=== PATIENT | female | born 1940 | race African-American/Black ===

== ENCOUNTER 2023-04-20 07:50 | Emergency (ER) | payer MEDICARE, SELFPAY ==
--- NOTE | ~2023-04-20 | XR_ITS ---
EXAMINATION: XR hip LT 2V w AP pelvis DATE: 04/20/2023 08:55 INDICATION: Left hip pain. TECHNIQUE: An anteroposterior view of the pelvis and 2 views of left hip were obtained. COMPARISON: None. FINDINGS: Bone alignment is normal. No fracture. There is severe osteoarthritis of the hips. Osteitis pubis is noted. There is severe lumbar spondylosis. IMPRESSION: 1. Severe osteoarthritis of the hips. Reviewed, dictated and finalized at location A. H DRIVER
--- NOTE | ~2023-04-20 | US_ITS ---
EXAMINATION: US venous doppler [facility] DATE: 04/20/2023 08:42 INDICATION: Left lower limb pain TECHNIQUE: [place] scale images without and with compression and Doppler images of the left lower extrem ity veins were obtained. COMPARISON: None FINDINGS: The left common femoral vein, profunda femoral vein, femoral vein, popliteal vein, peroneal trunk, posterior tibial veins, and greater saphenous vein are patent. IMPRESSION: 1. Patent left lower extremity veins. No evidence of deep venous thrombosis. Reviewed, dictated and finalized at location B. TESTER
[2023-04-20 07:59] VITALS: BP 179/92; PULSE 92; RESP 13; TEMP 36.4; O2SAT 100
--- NOTE | 2023-04-20 08:12 | ECG_ITS ---
Measurements Intervals [place] Rate: 90 P: 16 [place]: 167 QRS: -46 QRSD: 102 T: 29 QT: 394 QTc: 483 Interpretive Statements SINUS RHYTHM LEFT AXIS DEVIATION [QRS AXIS < -30] CONSIDER PREVIOUS INFERIOR INFARCTION ABNORMAL ECG NO PREVIOUS ECG AVAILABLE FOR COMPARISON Electronically Signed On 04-20-2023 18:17:55 MOBILE DEVICE ENGINEER by Arturo Ibrahim M.D.
--- NOTE | 2023-04-20 08:27 | ED.GENADULT ---
HPI - General Adult General Chief complaint: Unspecified Stated complaint: sciatica pain Time Seen by Provider: 04/20/23 07:54 History of Present Illness HPI narrative: 82-year-old female presenting to the emergency department for evaluation of left hip pain that has been going on for approximately 1 month but has worsened over the course of the last week. Patient denies any specific falls or injuries. Patient describes left hip pain that radiates down to her left leg that is worsened with ambulation. Patient denies any rashes. Patient reports she does have a prior history of sciatica and this feels very similar to it. Patient is a diabetic Related Data Allergies Allergy/AdvReac Type Severity Reaction Status Date / Time No Known Allergies Allergy Verified 04/20/23 08:02 Review of Systems Review of Systems: All systems reviewed & are unremarkable except as noted in HPI and below Exam Narrative: APPEARANCE: Well appearing, no pain, no distress, well-nourished. HEAD: normocephalic, atraumatic. EYES: PERRLA/EOMI, conjunctivae clear. NOSE: Normal no drainage NECK: Supple. No adenopathy, no masses. RESPIRATORY: Airway patent, respirations nonlabored. Clear to auscultation bilaterally, no rales, rhonchi, wheezing. CARDIOVASCULAR: Regular rate and rhythm without murmurs rubs or gallops. ABDOMINAL: Soft, nontender, nondistended, normal bowel sounds MUSCULOSKELETAL: Moves all extremities. Strength/ROM intact, No edema, No calf tenderness. NEURO: Alert. Cranial nerves II through XII intact. Good gait. Good coordination SKIN: No evidence of cellulitis or shingles at the affected site Course Course Emergency Course: Patient is being treated for sciatica with Medrol Dosepak and Flexeril. Vital Signs Vital signs: Vital Signs Temperature 97.5 F L 04/20/23 07:59 Pulse Rate 92 04/20/23 07:59 Respiratory Rate 13 04/20/23 07:59 Blood Pressure 179/92 H 04/20/23 07:59 Pulse Oximetry 100 04/20/23 07:59 Temperature 97.8 F 04/20/23 10:35 Pulse Rate 80 04/20/23 10:35 Respiratory Rate 13 04/20/23 10:35 Blood Pressure 163/87 H 04/20/23 10:35 Pulse Oximetry 99 04/20/23 10:35 Medical Decision Making MDM Narrative Medical decision making narrative: 82-year-old female presenting to the emergency department for evaluation of left hip pain that was reminiscent of her previous sciatic pain. Patient's x-ray showed no acute fracture dislocation an ultrasound was negative for DVT. Patient was provided [place] and Flexeril for pain med the emergency department but patient had not yet had significant improvement of her symptoms. Patient family updated on the results of the workup and suspected etiology of sciatica. Patient will be provided Medrol Dosepak, patient was advised to closely follow her low carb diet since she is diabetic. Patient will also be provided Flexeril for muscle spasm. Patient was encouraged to have close follow-up with her primary care physician. All questions and concerns were addressed patient was well-appearing at time of discharge. Differential Diagnosis Differential Diagnosis: Hip fracture, hip strain, shingles, cellulitis, muscular strain, sciatica Vital Signs Vital Signs: Vital Signs Temperature 97.5 F L 04/20/23 07:59 Pulse Rate 92 04/20/23 07:59 Respiratory Rate 13 04/20/23 07:59 Blood Pressure 179/92 H 04/20/23 07:59 Pulse Oximetry 100 04/20/23 07:59 Temperature 97.8 F 04/20/23 10:35 Pulse Rate 80 04/20/23 10:35 Respiratory Rate 13 04/20/23 10:35 Blood Pressure 163/87 H 04/20/23 10:35 Pulse Oximetry 99 04/20/23 10:35 Discharge Plan Discharge Clinical Impression: Sciatica Patient Disposition: Home, Self-Care Condition: Stable Instructions: Antibiotic Form, Sciatica (ED) Additional Instructions: Tylenol for pain control. Flexeril for muscle spasm. Medrol Dosepak as directed until completed. The Medrol Dosepak
[2023-04-20 08:57] VITALS: BP 164/84; PULSE 88; RESP 13; O2SAT 100
[2023-04-20] MEDS: CYCLOBENZAPRINE HCL 10 MG TABLET PO (09:37)
[2023-04-20] MEDS: HYDROcodone/acetaminophen (*CRX) 5-325 MG TABLET 1 TAB PO (09:37)
[2023-04-20 09:38] VITALS: BP 180/94; PULSE 90; RESP 13; O2SAT 100
[2023-04-20 10:35] VITALS: BP 163/87; PULSE 80; RESP 13; TEMP 36.6; O2SAT 99
== END 2023-04-20 10:38 | disposition home or self-care (01) ==
PROVIDERS: Emergency Provider Emergency Medicine; PCP Internal Medicine
DX: M54.32 Sciatica, left side (principal); M79.605 Pain in left leg; E11.9 Type 2 diabetes mellitus without complications; M16.0 Bilateral primary osteoarthritis of hip; R94.31 Abnormal electrocardiogram [ECG] [EKG]
CPT/HCPCS: 73502; 93005; 93971; 99284; A9270

== ENCOUNTER 2025-02-20 07:33 | Observation (INO) | payer MEDICARE, SELFPAY ==
--- OUTSIDE RECORDS SUMMARY | 2015-02-05 02:45 | XMS_ITS | Continuity of Care Document ---
[facility] Organization [facility] Address [id number] [place] [address] [address] [place] [address] Phone Care Team Providers Care Clinical Trial Educator Name Role Phone Peterson ZHONG, Cornelius Unavailable Unavaila ble Allergies, Adverse Reactions, Alerts Substance Reaction Status Criticality Iodinated Contrast Media Active No Information Medications Medication Instructions Dosage Effective Dates (start - stop) Status Comments Restasis 0.05 % eye drops in a dropperette instill 1 drop by Ophthalmic route 2 times every day into affected eye(s) 1 drop - Active Aleve 220 mg capsule prn - Active STANBACK ANALGESIC (unknown strength) Not Available - Active metformin 500 mg tablet take 1 tablet (500MG) by oral route 2 times every day with morning and evening meals 500 MG - Active clonazepam 0.5 mg tablet take 1 tablet (0.5MG) by oral route 3 times every day 0.5 MG - Active Procedures Procedure Date OFFICE/OUTPATIENT VISIT, EST VISUAL FIELD EXAMINATION(S) OFFICE/OUTPATIENT VISIT, EST GDX Optic Nerve OFFICE/OUTPATIENT VISIT, EST POSTOP FOLLOW-UP VISIT POSTOP FOLLOW-UP VISIT CATARACT SURG W/IOL, 1 STAGE POSTOP FOLLOW-UP VISIT POSTOP FOLLOW-UP VISIT POSTOP FOLLOW-UP VISIT CATARACT SURG W/IOL, 1 STAGE OFFICE/OUTPATIENT VISIT, EST OPHTHALMIC BIOMETRY OPHTHALMIC BIOMETRY VISUAL FIELD EXAMINATION(S) OFFICE/OUTPATIENT VISIT, [facility] Advance Directives Directive Yes / No Effective Date File Name No Information Encounters Encounter Description Practice Location Reason(s) For Visit Diagnoses Date Provider Providers Copied on Encounter OFFICE/OUTPA TIENT VISIT, EST [facility], [address] [place] [address], [id number], tel:[phone] [facility] Office glc check (chief complaint)d iabetic check (chief complaint) DM w/o complication type IIDry eyes, bilateralVitr eous floaters of both eyesOpen angle with borderline findings and low glaucoma risk in both eyesCataract extraction status of right eyeCataract extraction status of left eye 5 Peterson Shields. [address], [address], [place], [place], [id number], . tel:[phone] Referring Provider: Cornelius Winkler [address], [place], [address]. tel:[phone] OFFICE/OUTPA TIENT VISIT, EST [facility], [address] [place] [address], [id number], tel:[phone] [facility] Office Diabetic eye exam (chief complaint)G laucoma, suspect (chief complaint) Lens replaced by other meansOpen angle with borderline glaucoma findingsMacul ar drusenDiabete s Mellitus Type 2, Uncomplicated 5 Peterson Shields. [address], [address], [place], [place], [id number], [place]. tel:[phone] Referring Provider: Cornelius Winkler , [address], [place], [address]. tel:[phone] OFFICE/OUTPA TIENT VISIT, EST [facility], [address] [place] [address], [id number], tel:[phone] [facility] Office IOP check right eye and left eye 3 month(s) (chief complaint)n o complaints OU (chief complaint) Open angle with borderline glaucoma findingsLens replaced by other means Oct-0 4 Stephanie Clark. [address], [address], [place], [place], [id number], [place]. tel:[phone] Referring Provider: Eduardo Colin, [address] [facility] [address], [place], [address]. tel:[phone] [facility], [address] [place], [place] [address] [address], [place], [place], [id number], [place] tel:[phone] [facility] No Information 4 Stephanie Clark. [address] [facility], [address], [place], [place], [id number], [place]. tel:[phone] [facility], [address] [place], [place] [address], [place], [place], [id number], [place] tel:[phone] [facility] no complaints OU (chief complaint) No Information 4 Stephanie Clark. [address], [address], [place], [place], [address], [place]. tel:[phone] [facility], [address] [place], [place] [address]TE [facility], [place], [place], [id number], [place] tel:[phone] [facility] no complaints OU (chief complaint) No Information 4 Peterson Shields. [address], [place], [place], [id number], [place]. tel:[phone] Referring Provider: Cornelius Winkler , [address], [place], [address]. tel:[phone] [facility], [address] [place], [place] [address] [address], [place], [place], [id number], [place] tel:[phone] [facility] No Information 4 Peterson Shields. [address], [address], [place], [place], [address], [place]. tel:[phone] Referring Provider: Cornelius Winkler , [address], [place], [address]. tel:[phone] [facility], [address] [place] [address], [id number], tel:[phone] [facility] Pt not sleeping on right side OD (chief complaint)v ision is improved OD (chief complaint) No Information 4 Peterson Cornelius. [address], [place], [place], [id number], [place]. tel:[phone] Referring Provider: Cornelius Winkler [address], [place], [address]. tel:[phone] [facility], [address] [place] [address], [id number], tel:[phone] [facility] no complaints OD (chief complaint) No Information 4 Joaonasheidy Cornelius. [address], [place], [place], [address], [place]. tel:[phone] Referring Provider: Cornelius Winkler , [address], [place], [address]. tel:[phone] [facility], [address] [place] [address], [id number], [place] tel:[phone] [facility] YOLI BUTTS vision is improved OD (chief complaint) No Information 4 Krishnasamy Cornelius. [address], [address], [id number], [place]. tel:[phone] Referring Provider: Cornelius Winkler , [address], [place], [address]. tel:[phone] [facility], [address] [place] [address], [id number], tel:[phone] [facility] No Information 4 Peterson Cornelius. [address], [address], [place], [id number], . tel:[phone] Referring Provider: Cornelius Winkler , [address], [address]. tel:[phone] OFFICE/OUTPA TIENT VISIT, EST [facility], [address] [place] [address], [id number], tel:[phone] [facility] Office Senile nuclear sclerosisOpen angle with borderline glaucoma findingsDiabe deni Mellitus Type 2, Uncomplicated 4 Ministerioheidy Shields. [address], [address], [id number], . tel:[phone] Referring Provider: Cornelius Winkler , [address], [address]. tel:[phone] OFFICE/OUTPA TIENT VISIT, [facility], [address] [place] [address], [id number], tel:[phone] [facility] Office Pain in or around eyeConjunctiv al hemorrhageSen ile nuclear sclerosisOpen angle with borderline glaucoma findings 4 Peterson Shields. [address], [address], [address], [place]. tel:[phone] Referring Provider: Cornelius Winkler [address], [place], [address]. tel:[phone] Family History Family Member Type Diagnosis Age At Onset Problem (finding) Family history of Diabe deni mellitus Payers Payer name Insurance type Covered republican ID Authoriza tion(s) Medicare Complete Advantage [facility] [id number] Social History Type Description Quantity Date Captured Comments Alcohol Use Details Caffeine Use Details Unknown Tobacco Use Status No Information Smoking Status Former smoker Sex Female Chief Complaint And Reason For Visit From encounter dated '02/05/2015 08:45'. glc check (chief complaint). Description: The 74 year old female presents for glc check in the right eye and left eye. No drops currently. Vision seems stable. Patient did not bring glasses today. Only wears PRN. Last eye exam 08/04/2014. Last [facility] OCT 08/04/14. VF done today diabetic check (chief complaint). Description: The patient is present for diabetic check in the right eye and left eye. NIDDM - pt unsure last BS or HBA1c. Followed by Dr. Langston Reason For Referral Reason For Referral No Information History Of Present Illness Encounter Date Complaint History Of Prese nt Illness glc check The 74 year old female presents for glc check in the right eye and left eye. No drops currently. Vision seems stable. Patient did not bring glasses today. Only wears PRN. Last eye exam 08/04/2014. Last [facility] OCT 08/04/14. VF done today diabetic check The patient is p resent for diabetic check in the right eye and left eye. NIDDM - pt unsure last BS or HBA1c. Followed by Dr. Langston Diabetic eye exam The 74 year ol d female presents for evaluation of Diabetic eye exam in the right eye and left eye. It started about 1 year(s) ago. The symptom is constant. The condition is stable. Pt unsure of last A1C. Glaucoma, suspect The patient is present for evaluation of Glaucoma, suspect in the right eye and left eye. It started about 6 month(s) ago. The symptom is constant. The condition is stable. no complaints no complaints OU no complaints no complaints OU no complaints no complaints OU Pt not sleeping on right side Pt not sleeping on right side OD BAT 20/25 20/CF vision is improved vision is imp roved OD no complaints no complaints OD vision is improved vision is imp roved OD Functional Status Date Functional Assessmen t No Information Instructions Date Instruction Additional Infor keila Follow up - Return i n 6 months with for Complete Exam. Impression/Plan - Wi ll continue to observe condition and or symptoms. Call if VA worsens. Related to Cataract extraction status of left eye Impression/Plan - Wi ll continue to observe condition and or symptoms. Related to Cataract extraction status of right eye Impression/Plan - Nelson rderline glaucoma, intraocular pressure stable without medication. Continue without medication and observe. VF today was unreliable-OU. Related to Open angle with borderline findings and low glaucoma risk in both eyes Impression/Plan - Di abetes type II: no background retinopathy, no signs of neovascularization noted. Discussed ocular and systemic benefits of blood sugar control. Related to DM w/o complication type II Impression/Plan - Restasis BID-O U. Related to Dry eyes, bilateral Impression/Plan - Al l signs and risks of retinal detachment and tears were discussed in detail. Patient instructed to call the office immediately if any symptoms noted. Related to Vitreous floaters of both eyes Follow up - Return i n 6 months with for Complete Exam. Impression/Plan - Di abetes type II: no background retinopathy, no signs of neovascularization noted. Discussed ocular and systemic benefits of blood sugar control. Related to Diabetes Mellitus Type 2, Uncomplicated Impression/Plan - Di scussed diagnosis in detail with patient. No treatment is required at this time. Will continue to observe condition and or symptoms. Call if VA worsens. Related to Macular drusen Impression/Plan - St able. No treatment is required at this time. Will continue to monitor IOP. IOPs WNL today OU, will observe. Related to Open angle with borderline glaucoma findings Impression/Plan - St able. No treatment is required at this time. Related to Lens replaced by other means Lens replaced by oth er means OU - Stable. No treatment is required at this time. Will continue to observe condition and or symptoms. 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 No treatment is required at this time. Will continue to monitor IOP. Related to Open angle with borderline glaucoma findings - Return in 6 months with Cornelius Winkler MD for Diabetic Eval. Related to Open angle with borderline glaucoma findings - Standard distance lens. Continue using OTC readers. If RTO in 3 months for Follow UP Related to Cataract 1 week, 2nd eye - Refract patient next visit. - Related to Cataract 1 day, 2nd eye - Discussed importan ce of keeping blood sugar under controlReturn in 1 week. Related to Cataract 1 day, 2nd eye - Schedule Cataract Surgery for the 2nd eye -OS due to halos and glare while night driving and reading Related to Cataract 1 month - Return in 1 Month- Consider scheduling OS next visit Related to Cataract 1week, 1st eye, STD, DIST - Refract patient next visit. - Related to Cataract 1 day, 1st eye - Return in 1 week. Related to C ataract 1 day, 1st eye Diabetes Type II - D iabetes type II: no background retinopathy, no signs of neovascularization noted. Discussed ocular and systemic benefits of blood sugar control. Related to Diabetes Type II Senile nuclear scler osis OU-small pupils - Discussed all risks, benefits, procedures and recovery. Patient understands changing glasses will not improve vision. Patient desires to have surgery, recommend phacoemulsification with intraocular lens.OD first and then OS. Standard, distance lens. 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 No treatment is required at this time. Will continue to monitor. 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 Advised patient that surgical treatment is needed to improve vision. RTO in 1 month for Cat eval-will discuss surgery further at that time. Related to Senile nuclear sclerosis Pain in or around ey e OD - Discussed diagnosis in detail with patient. No treatment is required at this time. Cont using antibiotic gtts given by ER. Patient instructed to call if condition gets worse. 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 No treatment is required at this time. Will continue to observe condition and or symptoms. VF and IOP check in 1 month Related to Open angle with borderline glaucoma findings Conjunctival hemorrh age OD - Discussed diagnosis in detail with patient. No treatment is required. Related to Conjunctival hemorrhage Assessments Type Assessment Date assessment DM w/o complication type II impression Dry eyes, bilateral: H04.123. De assessment Dry eyes, bilateral impression Vitreous floaters of both eyes: H43.393. assessment Vitreous floaters of both eyes D impression Open angle with bord kymberly findings and low glaucoma risk in both eyes: H40.013. assessment Open angle with bord kymberly findings and low glaucoma risk in both eyes impression Cataract extraction status of ri ght eye: Z98.41. assessment Cataract extraction status of ri ght eye impression Cataract extraction status of le ft eye: Z98.42. assessment Cataract extraction status of le ft eye impression DM w/o complication type II: E11 .9. Patient Care Teams Name Effective Dates (start - stop) Status Members No Information
[2025-02-20] VITALS (10 sets, daily range): BP systolic 132–194; BP diastolic 72–101; PULSE 87–97; RESP 16–20; TEMP 36.4–36.8; O2SAT 98–100; BMI 42.1; BMI 41.8
--- NOTE | ~2025-02-20 | XR_ITS ---
EXAMINATION: XR chest 2V DATE: 02/20/2025 09:07 INDICATION: Cough. Racing heart. TECHNIQUE: frontal and lateral views of the chest were obtained. COMPARISON: None FINDINGS: Mild streaky atelectasis at the left lung base. Lungs otherwise clear. No pulmonary edema, pleural effusion or pneumothorax. Cardiomegaly. Tortuous thoracic aorta. 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 IMPRESSION: 1. Cardiomegaly. 2. Mild streaky left basilar atelectasis. No other acute cardiopulmonary disease. Reviewed, dictated and finalized at location A. GER STUDY IMPRESSION: 1. Cardiomegaly. 2. Mild streaky left basilar atelectasis. No other acute cardiopulmonary diseas e.
--- NOTE | 2025-02-20 07:37 | ECG_ITS ---
Test Date: 2025-02-20 07:41:36 Measurements Intervals [place] Rate: 93 P: 20 [place]: 147 QRS: -47 QRSD: 100 T: 57 QT: 368 QTc: 459 Interpretive Statements SINUS RHYTHM LEFT AXIS DEVIATION INCOMPLETE RIGHT BUNDLE BRANCH BLOCK POSSIBLE ANTERIOR MYOCARDIAL INFARCTION ABNORMAL ECG No previous ECG available for comparison Electronically Signed On 02-20-2025 08:46:16 HYDRAULIC MECHANIC by Blue Mccann D.O.
[2025-02-20 07:53] LABS: Hematocrit 46.4 % (37.0-47.0); Hemoglobin 15.1 g/dL (12.0-15.0); Immature Granulocyte Percent A 0.4 % (0-0.5); Lymphocytes Absolute Auto 3.36 K/mm3 (0.9-3.2); Mean Corpuscular HGB Conc 32.5 g/dl (32-36); Mean Corpuscular Hemoglobin 32.6 pg (26-34); Mean Corpuscular Volume 100.2 fl (80-100); Nucleated Red Blood Cells Absolute Auto 0.000 K/mm3 (0.0-0.012); Nucleated Red Blood Cells Perc 0.0 % (0.0-0.2); Platelet Count Result 195 k/mm3 (150-375); Red Blood Count 4.63 M/mm3 (4.2-5.4); White Blood Count 9.1 K/mm3 (4.5-10.0)
--- NOTE | 2025-02-20 08:08 | ED_ITS ---
HPI - General Adult General Chief complaint: Arrhythmia/Palpitations Stated complaint: heart racing Time Seen by Provider: 02/20/25 07:35 History of Present Illness HPI narrative: 84-year-old female presenting to the emergency department for evaluation for intermittent heart racing. Patient states this bothers her in the middle the night. Patient states that she is falling asleep she has no racing heart rate but wakes up with a racing heart rate. Patient has never had a sleep study and patient has no prior diagnosis of sleep apnea. Patient does take medications for blood pressure, diabetes and patient states she has not taken her blood pressure medication the last few days. Patient denies any sensation of racing heart rate now. Patient denies any associated chest pain, shortness breath, nausea vomiting diarrhea, abdominal pain. Patient denies any recent illnesses. Patient is resting comfortably at time of evaluation. Patient's heart rate is not tachycardic. Patient is hypertensive. Related Data Home Medications ?Medication ?Instructions ?Recorded ?Confirmed ?Last Taken ?Type losartan 50 mg tablet 50 mg PO DAILY 08/04/2401/2402/20/25 History meloxicam 15 mg tablet 15 mg PO DAILY 08/04/2401/24 Unknown History rosuvastatin 40 mg tablet 40 mg PO DAILY 08/04/2401/24 Unknown History Allergies Allergy/AdvReac Type Severity Reaction Status Date / Time blue dye Allergy Mild other Verified 02/20/25 16:23 Corticosteroids Allergy Mild angioedema Verified 02/20/25 16:23 (Glucocorticoids) enalapril Allergy Mild Cough Verified 02/20/25 16:23 semaglutide (From Ozempic) AdvReac Mild Nausea Verified 02/20/25 16:23 Review of Systems 2 Review of Systems: All systems reviewed & are unremarkable except as noted in HPI and below PMFSH Past Medical History Medical History Essential hypertension Obesity Hyperlipidemia Vitamin D deficiency Diabetes mellitus Surgical History Surgical History H/O tubal ligation Hx of eye surgery History of removal of cyst Family History Family History Father Diabetes mellitus Other Diabetes mellitus Social History Social History Smoking status: Never smoker Second hand tobacco smoke exposure: No Alcohol intake: never Substance use: never Substance use type: does not use Lack of Transportation: No Lack of Food: Never True Current Housing: I Have Housing Concerned About Future Housing: No Difficulty Paying Gas/Electric Bills: No Difficulty Paying for Meds: No Currently Unemployed: No Education: High School Diploma/GED Difficulty w/ Childcare or Family Care: No Occupation/Education: retired Gender identity (if verbalized by the patient): Female Sexual Orientation (if Verbalized by the Patient): Straight or Heterosexual Spiritual care concerns: No Agree to blood products: Yes Exam 2 Narrative: APPEARANCE: Well appearing, no pain, no distress, well-nourished. HEAD: normocephalic, atraumatic. EYES: PERRLA/EOMI, conjunctivae clear. NOSE: Normal no drainage EARS:TMS clear with good light reflex. THROAT: Pharynx clear, no exudate. NECK: Supple. No adenopathy, no masses. RESPIRATORY: Airway patent, respirations nonlabored. Clear to auscultation bilaterally, no rales, rhonchi, wheezing. CARDIOVASCULAR: Regular rate and rhythm without murmurs rubs or gallops. ABDOMINAL: Soft, nontender, nondistended, normal bowel sounds MUSCULOSKELETAL: Moves all extremities. Strength/ROM intact, No edema, No calf tenderness. NEURO: Alert. Cranial nerves II through XII intact. Good gait. Good coordination SKIN: Warm, dry. Normal Color Course Vital Signs Vital signs: Vital Signs Temperature 97.5 F L 02/20/25 07:37 Pulse Rate 96 02/20/25 07:37 Respiratory Rate 18 02/20/25 07:37 Blood Pressure 194/101 H 02/20/25 07:37 Pulse Oximetry 100 02/20/25 07:37 Oxygen Delivery Room Air 02/20/25 07:37 Temperature 98.2 F 02/20/25 13:57 Pulse Rate 87 02/20/25 13:57 Respiratory Rate 20 02/20/25 13:57 Blood Pressure 132/76 02/20/25 13:57 Pulse Oximetry 99 02/20/25 13:57 Oxygen Delivery Room Air 02/20/25 07:46 MDM MDM Narrative Medical decision making narrative: 84-year-old female presents emergency department for evaluation for elevated blood pressure. Patient arrived with a blood pressure of 194/101. Patient had not taken her blood pressure medications for the last few days. Patient was treated with her home medications and patient's blood pressure did improve to 128/79. At time of re-evaluation patient denies any headache chest pain or other complaints. She does feel improved. Patient has no prior history of NM. Patient believes she had a previous stress test but is unsure when. Patient does not follow-up with Cardiology. Patient is afebrile with no leukocytosis and hemoglobin of 15.1. Patient has a INR of 1.1. Patient's creatinine is 0.84. Normal TSH. Patient's chest x-ray shows cardiomegaly with no acute cardiopulmonary abnormality. Serial EKGs showed normal sinus rhythm with incomplete right bundle-branch. Case will be discussed with Cardiology and the hospitalist. Recommend admission for further cardiac evaluation. Cardiology is consulted and they were comfortable the plan for holding on heparin at this time. Patient will be admitted to the IMU. Hospitalist was consulted as well. Patient is unsure of her code status at this time. Differential Diagnosis Differential Diagnosis: Sleep apnea, tachycardia, SVT, AFib, a flutter ACS, hypertensive urgency Lab Data [facility] Lab Attestation statement: I personally reviewed the patient's lab results. 02/20/25 07:47 02/20/25 08:06 Labs: Lab Results 02/20/25 02/20/25 02/20/25 Range/Units 07:47 08:06 11:06 WBC 9.1 (4.5-10.0) K/mm3 RBC 4.63 (4.2-5.4) M/mm3 Hgb 15.1 H (12.0-15.0) g/dL Hct 46.4 (37.0-47.0) % MCV 100.2 H (80-100) fl MCH 32.6 (26-34) pg MCHC 32.5 (32-36) g/dl RDW 13.0 (11.5-14.5) % Plt Count 195 (150-375) k/mm3 MPV 10.4 (7.4-10.4) fl Immature Gran % (Auto) 0.4 (0-0.5) % Neut % (Auto) 53.7 (45.5-73.1) % Lymph % (Auto) 37.0 (18.3-44.2) % Tucker % (Auto) 6.9 (2.6-8.5) % Eos % (Auto) 1.2 (0-4.4) % Baso % (Auto) 0.8 (0.2-1.2) % Lymph # (Auto) 3.36 H (0.9-3.2) K/mm3 Tucker # (Auto) 0.6 (0.1-0.6) K/mm3 Eos # (Auto) 0.1 (0-0.3) K/mm3 Baso # (Auto) 0.1 (0.0-0.1) K/mm3 Abs Immat Gran (auto) 0.04 H (0.00-0.031) K/mm3 Absolute Neuts (auto) 4.9 (1.3-6.7) K/mm3 Absolute Nucleated RBC 0.000 (0.0-0.012) K/mm3 Nucleated RBC % 0.0 (0.0-0.2) % PT 14.1 (11.1-14.7) Seconds INR 1.1 APTT 28.3 (22.3-36.8) Seconds Sodium 143 (137-145) mmol/L Potassium 3.9 (3.4-5.0) mmol/L Chloride 111 H (98-107) mmol/L Carbon Dioxide 24 (22-30) mmol/L Anion Gap 8 (4-12) mmol/L BUN 14 (7-17) mg/dL Creatinine 0.84 (0.7-1.0) mg/dL Estim Creat Clear Calc 48 ml/min Estimated GFR > 60 (59 - ) Glucose 137 H (65-110) mg/dL POC Capillary Glucose (65-105) mg/dl Calcium 9.1 (8.4-10.2) mg/dL Magnesium 2.0 (1.6-2.3) mg/dL Total Bilirubin 0.8 (0.2-1.3) mg/dL AST 35 (14-36) U/L ALT 18 (6-35) U/L Alkaline Phosphatase 118 (38-126) U/L Troponin I 0.037 H* 0.043 H* (0.000-0.034) ng/mL Total Protein 8.4 H (6.3-8.2) g/dL Albumin 4.1 (3.5-5.1) g/dL Lipase 73 (23-300) U/L TSH (Reflex) 3.320 (0.465-4.68) uIU/mL 02/20/ Range/Units 11:21 WBC (4.5-10.0) K/mm3 RBC (4.2-5.4) M/mm3 Hgb (12.0-15.0) g/dL Hct (37.0-47.0) % MCV (80-100) fl MCH (26-34) pg MCHC (32-36) g/dl RDW (11.5-14.5) % Plt Count (150-375) k/mm3 MPV (7.4-10.4) fl Immature Gran % (Auto) (0-0.5) % Neut % (Auto) (45.5-73.1) % Lymph % (Auto) (18.3-44.2) % Tucker % (Auto) (2.6-8.5) % Eos % (Auto) (0-4.4) % Baso % (Auto) (0.2-1.2) % Lymph # (Auto) (0.9-3.2) K/mm3 Tucker # (Auto) (0.1-0.6) K/mm3 Eos # (Auto) (0-0.3) K/mm3 Baso # (Auto) (0.0-0.1) K/mm3 Abs Immat Gran (auto) (0.00-0.031) K/mm3 Absolute Neuts (auto) (1.3-6.7) K/mm3 Absolute Nucleated RBC (0.0-0.012) K/mm3 Nucleated RBC % (0.0-0.2) % PT (11.1-14.7) Seconds INR APTT (22.3-36.8) Seconds Sodium (137-145) mmol/L Potassium (3.4-5.0) mmol/L Chloride (98-107) mmol/L Carbon Dioxide (22-30) mmol/L Anion Gap (4-12) mmol/L BUN (7-17) mg/dL Creatinine (0.7-1.0) mg/dL Estim Creat Clear Calc ml/min Estimated GFR (59 - ) Glucose (65-110) mg/dL POC Capillary Glucose 131 H (65-105) mg/dl Calcium (8.4-10.2) mg/dL Magnesium (1.6-2.3) mg/dL Total Bilirubin (0.2-1.3) mg/dL AST (14-36) U/L ALT (6-35) U/L Alkaline Phosphatase (38-126) U/L Troponin I (0.000-0.034) ng/mL Total Protein (6.3-8.2) g/dL Albumin (3.5-5.1) g/dL Lipase (23-300) U/L TSH (Reflex) (0.465-4.68) uIU/mL Imaging Data Radiologist's impression: ITS Impressions Chest X-Ray 02/20/25 09:12 IMPRESSION: 1. Cardiomegaly. 2. Mild streaky left basilar atelectasis. No other acute cardiopulmonary disease. Discharge Plan Discharge Clinical Impression: Heart palpitations, Non-ST elevation NM (NSTEMI) Patient Disposition: Still a Patient Condition: Serious
[2025-02-20] MEDS: LOSARTAN POTASSIUM 50 MG TABLET PO (08:12)
[2025-02-20 08:25] LABS: Alanine Aminotransferase 18 U/L (6-35); Albumin Level 4.1 g/dL (3.5-5.1); Alkaline Phosphatase 118 U/L (38-126); Anion Gap 8 mmol/L (4-12); Aspartate Amino Transferase 35 U/L (14-36); Bilirubin,Total 0.8 mg/dL (0.2-1.3); Blood Urea Nitrogen 14 mg/dL (7-17); Calcium 9.1 mg/dL (8.4-10.2); Carbon Dioxide 24 mmol/L (22-30); Chloride 111 mmol/L (98-107); Estimated CRCL calculation 48 ml/min; Estimated Glomerular Filt Rate > 60; Glucose 137 mg/dL (65-110); INR 1.1; Lipase 73 U/L (23-300); Magnesium 2.0 mg/dL (1.6-2.3); Potassium 3.9 mmol/L (3.4-5.0); Prothrombin Time 14.1 Seconds (11.1-14.7); Sodium 143 mmol/L (137-145); Total Protein 8.4 g/dL (6.3-8.2)
[2025-02-20 08:26] LABS: Partial Thromboplastin Time 28.3 Seconds (22.3-36.8)
[2025-02-20 08:36] LABS: Troponin I 0.037 ng/mL (0.000-0.034)
--- OUTSIDE RECORDS SUMMARY | 2025-02-20 08:49 | XMS_ITS | Clinical Summary ---
Author Organization [facility] Address [address] [place] [address] Care Team Providers Care Stereo Equipment Installer Name Role Phone Unavailable Primary Care Provider Unavailabl e Source Comments [facility],non-owned Affiliates and Associated Physician Practices is amultiple site organization consisting of ambulatory clinics and hospital sitesin [place], [place], [place] and [place]. This disclosure is being madepursuant to the Care Everywhere program and may not contain all information available regarding this patient. Last updated 17.[facility] Allergies Active Allergy Reactions Criticality Noted Date Comments Iodine 04/16/2009 Ivp dye Medications * Be aware that medications may not be up to date on this document. Alwaysverify current medications with the patient. Naproxen Sodium (ALEVE PO) Active glipiZIDE CR 24hr (GLUCOTROL XL) 2.5 MG tablet Take 1 Tab by mouth daily before breakfast 90 Tab 1 7 Active atorvastatin (LIPITOR) 40 MG tablet Take 1 Tab by mouth at bedtime 30 Tab 5 7 Active aspirin (ASPIRIN) 81 MG tablet Take 1 Tab by mouth once daily 30 Tab 5 7 Active One Touch Delica Lancets TEST DIRECTED THREE TIMES DAILY 300 Each 5 7 Active ONETOUCH VERIO test strip TEST DIRECTED 3 TIMES DAILY 250 Strip 1 7 Active enalapril (VASOTEC) 5 MG tablet TAKE 1 TABLET BY MOUTH EVERY DAY 30 Tab 5 7 Active metFORMIN (GLUCOPHAGE) 1000 MG tablet TAKE 1 TABLET BY MOUTH TWICE DAILY WITH THE MORNING AND EVENING MEAL FOR DIABETES 60 Tab 5 7 Active Active Problems Problem Noted Date Diagnosed Date Ulnar nerve compression 06/25/2016 Full code status 06/17/2016 Carpal tunnel syndrome 03/14/2016 BMI 40.0-44.9, adult 03/13/2016 M obesity 03/13/2016 Hip pain 04/16/2009 HTN (hypertension) HLD (hyperlipidemia) Overview (06/17/2016): 05/2016: 45.2 % 10 yr ascvd risk, atorvastatin 40 mg started Diabetes mellitus Arthritis Anxiety Family History Medical History Relation Name Comments Breast Cancer at or under ag e 50 Daughter Diabetes Father Hypertension Father [place] Father Dementia Maternal Grandmother Stroke Mother took her husban d's meds acidentally Diabetes Paternal Grandmother Other Son sudden Relation Name Status Comments Daughter (Age 44) Father Maternal Grandmother Mother Paternal Grandmother Son (Age 44) Social History Tobacco Use Types Packs/Day Years Used Date Smoking Tobacco: Former Cigarettes 2 35 Tobacco Cessation:Counseling Given: Yes Alcohol Use Standard Drinks/Week Comments Yes 0 (1 standard drink = 0.6 oz pur e alcohol) rare Comments Unknown Sex and Gender Information Value Date Recorded Sex Assigned at Not on file 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 Gender Identity Not on file Sexual Orientation Not on file Occupation Industry Job Start Date Job End Date retired Not on file Not on file Not on file Last Filed Vital Signs Vital Sign Reading Time Taken Comments Blood Pressure 122/80 06/17/2016 11:36 AM CDT Pulse 95 06/17/2016 10:56 AM CDT Temperature 36.5 C (97.7 F) 06/17/2016 10:56 AM CDT Respiratory Rate 20 01/04/2016 9:14 AM [employer]ING MAKEUP ARTIST Oxygen Saturation 98% 06/17/2016 10: 56 AM CDT Inhaled Oxygen Concentration - - Weight 109.8 kg (242 lb 0.4 oz) 017 10:56 AM CDT Height 167.6 cm (5' 6) 06/17/2016 10:5 6 AM CDT Body Mass Index 39.06 06/17/2016 10:56 AM CDT Plan of Treatment Health Maintenance Due Date Last Done Comments BONE DENSITY TESTING 1940 PNEUMOCOCCAL VACCINE 50+ (1 of 1 - PCV) 1988 ZOSTER VACCINE (1 of 2) 1988 Respiratory Syncytial Virus (RSV) Vaccine Pt: or over 60 yrs (1 - 1-dose 75+ series) 2013 DIABETES-HGB A1C 12/17/2016 06/17/2016, 03/14/2016 DIABETES-FOOT EXAM WITH MONOFILAMENT 03/14/2017 03/14/2016 DEPRESSION SCREENING 02/24/2024 COVID-19 VACCINE (1 - 2024-2 6 season) 2024 INFLUENZA VACCINE (#1) 2024 DTAP/TDAP/TD VACCINES Discontinued HEPATITIS B VACCINE Aged Out No longe r eligible based on patient's age to complete this topic HIB VACCINE Aged Out No longer eligi ble based on patient's age to complete this topic HPV VACCINE Aged Out No longer eligi ble based on patient's age to complete this topic MENINGOCOCCAL (Group B) VACCINE SHARED DECISION-MAKING Aged Out No longer eligible based on patient's age to complete this topic MENINGOCOCCAL GROUPS A/C/Y/W VACCINE Aged Out No longer eligible based on patient's age to complete this topic Procedures Procedure Name Priority Date/Time Associated Diagnosis Comments HEMOGLOBIN A1C - POINT OF CARE (AMB) Routine 06/17/2016 Type 2 diabetes mellitus without complication, without long-term current use of insulin from Last 3 Months or Most Recently Relevant to Health Maintenance Results * (ABNORMAL) HEMOGLOBIN A1C - POINT OF CARE (HgbA1C) (06/17/2016) Hemoglobin A1c POCT 8.2 % QC Verified Yes Blood BLOOD SPECIMEN / Unknown 06/17/2016 us Chayito Gill MD LAB - POINT OF CARE ORDERABL ES Final Result from Last 3 Months or Most Recently Relevant to Health Maintenance Insurance [facility] MANAGED MEDICARE ADV
[2025-02-20 09:09] LABS: Thyroid Stimulating Hormone Reflex 3.320 uIU/mL (0.465-4.68)
--- NOTE | 2025-02-20 09:34 | PC.NURSE ---
Pt co L leg pain, EDP aware
[2025-02-20] MEDS: HYDROcodone/acetaminophen (*CRX) 7.5-325 MG TABLET 1 TAB PO (10:59)
--- NOTE | 2025-02-20 11:00 | ECG_ITS ---
Test Date: 2025-02-20 11:11:53 Measurements Intervals [place] Rate: 89 P: 72 KS: 149 QRS: -48 QRSD: 96 T: 51 QT: 370 QTc: 452 Interpretive Statements SINUS RHYTHM LEFT AXIS DEVIATION INCOMPLETE RIGHT BUNDLE BRANCH BLOCK POSSIBLE ANTERIOR MYOCARDIAL INFARCTION , OF INDETERMINATE AGE INFERIOR INFARCT, AGE INDETERMINATE BORDERLINE ST-T WAVE ABNORMALITY- HIGH LATERAL LEADS BASELINE ARTIFACT- I, II, III, AVL, V2 ABNORMAL ECG Compared to ECG 02/20/2025 07:41:36 NO SIGNIFICANT CHANGE Electronically Signed On 02-20-2025 22:15:12 FABRICATION MANAGER by Blue Mccann D.O.
[2025-02-20 11:36] LABS: Troponin I 0.043 ng/mL (0.000-0.034)
--- NOTE | 2025-02-20 14:01 | ECG_ITS ---
Test Date: 2025-02-20 14:09:25 Measurements Intervals [place] Rate: P: 0 NE: 0 QRS: 0 QRSD: 0 T: 0 QT: 0 QTc: 0 Interpretive Statements SINUS RHYTHM WITH ATRIAL PREMATURE COMPLEXES CONSIDER RIGHT VENTRICULAR CONDUCTION DELAY CONSIDER ANTERIOR INFARCT, AGE INDETERMINATE CONSIDER INFERIOR INFARCT, AGE INDETERMINATE ABNORMAL ECG Compared to ECG 02/20/2025 11:11:53 NO SIGNIFICANT CHANGE Electronically Signed On 02-20-2025 22:25:22 COMMERCIAL ENERGY RATER by Blue Mccann D.O.
--- NOTE | 2025-02-20 14:43 | PM.IMHP2 ---
H&P: HPI History of Present Illness Date/Time: 02/20/25 14:43 Chief Complaint: Palpitations Narrative: 84 y/o F with PMH of hypertension, hyperlipidemia, and diabetes presents here with palpitations. The patient presents here from home on 02/20 for further evaluation of palpitations. She reports she has had intermittent palpitations that is mainly occurred at night for the past few weeks. She has had 1 episode of palpitations during the day yesterday. She reports she wakes up with her her wheezing. Denies any accompanying chest pain, shortness a breath, nausea, vomiting, diarrhea, fever, chills, or dizziness. Her daughter reports that she noted her mom has had some exertional shortness of breath for some time, however has worsened in the last 1-2 weeks. The patient reports that the exertional shortness of breath has only started within the last few days. She has had intermittent bilateral lower extremity edema, tends to be worse at the end of the day and resolves with elevating her feet. She denies any weight gain. She reports intermittent compliance to her antihypertensives, last took her a per hypertensive medication on Thursday and missed her dose on Thursday/today. Currently has no complaints. Initial VS at presentation: 97.5? F, HR 96, R 18, 194/101, and 100% on RA proved ED workup showed: No leukocytosis, hemoglobin 15.1, normal coags, no significant electrolyte derangements, creatinine 0.84 and GFR >60, glucose 137, initial troponin 0.037 and repeat 0.043. CXR showed cardiomegaly and mild streaky left basilar atelectasis, no other acute cardiopulmonary disease. EKG showed sinus rhythm, left axis deviation, incomplete RBBB, possible anterior NM. Repeat EKG largely unchanged. Review of Systems Review of Systems: All systems reviewed & are unremarkable except as noted in HPI and below [facility] Past Medical History Medical History Essential hypertension Obesity Hyperlipidemia Vitamin D deficiency Diabetes mellitus Surgical History Surgical History H/O tubal ligation Hx of eye surgery History of removal of cyst Family History Family History Father Diabetes mellitus Other Diabetes mellitus Social History Social History Smoking status: Never smoker Second hand tobacco smoke exposure: No Alcohol intake: never Substance use: never Substance use type: does not use Lack of Transportation: No Lack of Food: Never True Current Housing: I Have Housing Concerned About Future Housing: No Difficulty Paying Gas/Electric Bills: No Difficulty Paying for Meds: No Currently Unemployed: No Education: High School Diploma/GED Difficulty w/ Childcare or Family Care: No Occupation/Education: retired Gender identity (if verbalized by the patient): Female Sexual Orientation (if Verbalized by the Patient): Straight or Heterosexual Spiritual care concerns: No Agree to blood products: Yes Meds Home Medications and Allergies Home Medications ?Medication ?Instructions ?Recorded ?Confirmed ?Type losartan 50 mg tablet 50 mg PO DAILY 08/04/24 02/20/25 History meloxicam 15 mg tablet 15 mg PO DAILY 08/04/24 02/20/25 History rosuvastatin 40 mg tablet 40 mg PO DAILY 08/04/24 02/20/25 History dapagliflozin propanediol 5 mg 5 mg PO DAILY #90 tabs 08/05/24 02/20/25 Rx tablet (Farxiga) Held on 02/20/25. Instructions: Patient no longer taking metformin 500 mg tablet,extended 500 mg PO BID #360 tabs 08/05/24 02/20/25 Rx release 24 hr (Glucophage XR) blood sugar diagnostic (OneTouch #300 ea 11/15/24 02/20/25 Rx Verio test strips) blood-glucose meter (OneTouch #1 ea 11/15/24 02/20/25 Rx Verio Flex Meter) lancets 32 gauge (Easy Touch #300 ea 11/15/24 02/20/25 Rx Lancets) Allergies Allergy/AdvReac Type Severity Reaction Status Date / Time blue dye Allergy Mild other Verified 02/20/25 16:23 Corticosteroids Allergy Mild angioedema Verified 02/20/25 16:23 (Glucocorticoids) enalapril Allergy Mild Cough Verified 02/20/25 16:23 semaglutide (From Ozempic) AdvReac Mild Nausea Verified 02/20/25 16:23 Vital Signs Vital Signs - 24 hr 02/20/25 07:37 02/20/25 07:46 02/20/25 07:46 Temperature 97.5 F L Pulse Rate 96 89 Respiratory Rate 18 Blood Pressure 194/101 H Pulse Oximetry 100 100 Oxygen Delivery Room Air Room Air 02/20/25 09:27 02/20/25 10:14 02/20/25 10:58 Temperature Pulse Rate 94 88 87 Respiratory Rate 19 16 16 Blood Pressure 154/89 H 152/90 H 160/88 H Pulse Oximetry 100 99 100 Oxygen Delivery 02/20/25 12:19 02/20/25 13:57 Temperature 98.2 F Pulse Rate 87 87 Respiratory Rate 18 20 Blood Pressure 138/86 132/76 Pulse Oximetry 100 99 Oxygen Delivery Exam Const: General: comfortable and no acute distress Other: -[place]ra[place], female, elderly, nontoxic appearance HENMT: Face/Nose/Sinus: Normal nares present Mouth: Yes moist mucous membranes Eyes: General: appearance normal, both eyes and all related structures Sclera: sclerae normal Pupils: Equal, round and reactive pupils present EOM: EOMs intact bilaterally Resp: Effort & Inspection: normal respiratory effort Auscultation: clear to auscultation bilaterally Cardio: Rate: regular rate Rhythm: regular rhythm Other: S1-S2 present without murmur, rub, ectopy GI: Other: Abdomen soft, nondistended, nontender. Normoactive bowel sounds in all quadrants. Skin: General skin exam: normal color and no rashes or lesions noted Wounds: no wounds Neuro: Speech: normal speech Motor exam (neuro): 5/5 motor strength present throughout Sensory Exam: normal sensation Other: A&O x4 Extrem: Other: Trace nonpitting edema to the bilateral ankles, symmetric Psych: Mental Status: mental status grossly normal Affect: normal affect Other: Good insight and judgment, very pleasant Results Labs Labs: Short CBC 02/20/25 Range/Units 07:47 WBC 9.1 (4.5-10.0) K/mm3 Hgb 15.1 H (12.0-15.0) g/dL Hct 46.4 (37.0-47.0) % Plt Count 195 (150-375) k/mm3 [facility] 02/20/25 08:06 Sodium 143 Potassium 3.9 Chloride 111 H Carbon Dioxide 24 BUN 14 Creatinine 0.84 Glucose 137 H Calcium 9.1 Cardiac Enzymes 02/20/25 02/20/25 Range/Units 08:06 11:06 Troponin I 0.037 H* 0.043 H* (0.000-0.034) ng/mL Liver Function 02/20/25 Range/Units 08:06 Total Bilirubin 0.8 (0.2-1.3) mg/dL AST 35 (14-36) U/L ALT 18 (6-35) U/L Alkaline Phosphatase 118 (38-126) U/L Albumin 4.1 (3.5-5.1) g/dL Quality VTE Prophylaxis VTE prophylaxis: mechanical ordered Assessment and Plan Assessment and plan (1) Heart palpitations: Code(s): R00.2 - Palpitations Status: Acute Assessment and Plan: Intermittent palpitations mainly occurring at night, did have 1 episode of palpitations during the day. No associated shortness of breath or chest pain. Initial EKG in the ER showed sinus rhythm, left axis deviation, incomplete RBBB, possible anterior NM. reviewed, agree with interpretation. Repeat EKG largely unchanged. No dysrhythmias thus far noted on telemetry. Troponin mildly elevated, however flat. However BP was significantly elevated on arrival at 194/101, has been noncompliant with her antihypertensive for the past 48 hours. Palpitations could be related to undiagnosed sleep apnea, has never undergone a sleep study prior, dysrhythmia, heart failure, or thyroid disorder. Patient reports adequate p.o. intake, however hemoglobin mildly elevated at 15.1, could be dehydration. Plan for TSH, BNP, continue telemetry monitoring, ApneaLink, and small fluid bolus to rule in/rule out these etiologies. - check TSH >> 3.320 on 02/20 - IV fluids: LR 100 mL/hour x1 L - telemetry monitoring to assess for dysrhythmia - ApneaLink - troponins elevated, however this is suspected to be secondary to her elevated blood pressure. Thus far flat. No active chest pain, low suspicion for ACS. (2) Non-ST elevation NM (NSTEMI): Code(s): I21.4 - Non-ST elevation (NSTEMI) myocardial infarction Status: Acute Assessment and Plan: Patient's initial troponin mildly elevated. Trend thus far 0.037 -> 0.043 -> 0.046. No active chest pain, shortness a breath, indigestion, fatigue, or weakness suggestive of ACS. EKGs reviewed. Initial EKG showed sinus rhythm, left axis deviation, incomplete RBBB, possible anterior NM. reviewed, agree with interpretation. Repeat EKGs completed x2, unchanged compared to initial. Suspect elevation in troponin secondary to hypertensive urgency. - SL nitro p.r.n. - ASA 324 -> 81 daily - cardiology consulted - telemetry monitoring (3) Essential hypertension: Code(s): I10 - Essential (primary) hypertension Status: Acute Assessment and Plan: chronic. Significantly elevated on arrival. Suspected hypertensive urgency related to medication noncompliance. Has not taken her antihypertensive since Thursday (02/18). She reports she is typically not very compliant with her antihypertensives. Daughter reports she is nervous about taking the blood pressure medications, however after today she states she will be taking them regularly. Given losartan p.o. and hydralazine IV in the ED and BP significantly improved, most recently 132/76. - continue home medications: Losartan 50 mg daily - monitor (4) Diabetes mellitus: Qualifiers: Diabetes mellitus type: type 2 Diabetes mellitus intermediate insulin use: without intermediate use Diabetes mellitus complication status: without complication Qualified Code(s): E11.9 - Type 2 diabetes mellitus without complications Code(s): E11.9 - Type 2 diabetes mellitus without complications Status: Acute Assessment and Plan: - hypoglycemia protocol - POC blood glucose ACHS - home medication: Hold metformin - correct regimen ordered - low dose TIDWM - A1C 7.2% on 11/15/2024 (5) Hyperlipidemia: Qualifiers: Hyperlipidemia type: unspecified Qualified Code(s): E78.5 - Hyperlipidemia, unspecified Code(s): E78.5 - Hyperlipidemia, unspecified Status: Chronic Assessment and Plan: - update lipid panel - continue home medication: Rosuvastatin 40 mg daily Plan Diet: Diabetic GI Prophylaxis: n/a DVT Prophylaxis: SCDs IV fluids: LR 100 mL/hour x1 L Lines/Tubes: pIV Code Status: Full code Prior Studies I have reviewed the following patient records and this information was taken into consideration when formulating the assessment and plan.: previous labs, previous ER visits, previous hospitalizations and previous clinic visits Time Spent with Patient Time with patient: less than 45 minutes Hospitalist MIPS Advance Care Plan I have confirmed that the patient's Advanced Care Plan is present, code status is documented, or surrogate decision maker is listed in patient medical record.: Yes Medication Reconciliation I have utilized all available resources to obtain, update and review the patients current medications (includes all prescriptions, OTC, herbals, cannabis, and nutritional supplements).: Yes
[2025-02-20 14:52] LABS: Troponin I 0.046 ng/mL (0.000-0.034)
--- NOTE | 2025-02-20 15:15 | PC.NURSE ---
Report given to Maru LOBO all questions answered
--- NOTE | 2025-02-20 16:15 | PC.NURSE ---
This patient, Mago Knowles, was admitted to [facility] IMU[facility]. Patient/family oriented to hospital policies and general routines including ID bracelet, bed and alarms, visiting hours, pain management, procedures, bathroom and other care routines, personal items, smoking policy, room service/diet, and visiting hours. Information on how to activate the Rapid Response Team has been discussed. Patient/Family are encouraged to report perceived risks to care and to ask questions if they do not understand what they are told or what they should do.
--- NOTE | 2025-02-20 22:52 | WPCEDHO ---
ED Hand Off Checklist All vitals saved:yes IV Site documented:yes All med administrations yesdocumented: Triage Note Triage Note Pt to ED co feeling like her 02/20/25 07:37 heart is racing that she states has been going on for weeks. Pt states it is intermittent and mainly happens at night. Pt denies cp & sob at this time. Pt states hx of HTN and states she doesn't always take her meds, denies taking them today. Pt TETLIN Allergies blue dye Allergy (Mild, Verified 02/20/25 16:23) other Corticosteroids (Glucocorticoids) Allergy (Mild, Verified 02/20/25 16:23) angioedema enalapril Allergy (Mild, Verified 02/20/25 16:23) Cough semaglutide (From Ozempic) Adverse Reaction (Mild, Verified 02/20/25 16:23) Nausea Current Diagnoses Type 2 diabetes mellitus without complications (02/20/25) Hyperlipidemia, unspecified (02/20/25) Essential (primary) hypertension (02/20/25) Non-ST elevation (NSTEMI) myocardial infarction (02/20/25) Palpitations (02/20/25) Family History (Last Reviewed 02/20/25 @ 14:51 by Lisa Lima, LACE WINDER) Father Diabetes mellitus Other Diabetes mellitus Administered/Completed Medications Discontinued Medications Hydrocodone Bitart/Acetaminophen (Hydrocodone/Acetaminophen (*Crx) 7.5-325 Mg Tablet) 1 tab PO ONCE STA Stop: 02/20/25 10:50 Last Admin: 02/20/25 10:59 Dose: 1 tab Documented By: JASON Aspirin (Aspirin 81 Mg Chewable Tablet) 324 mg PO ONCE STA Stop: 02/20/25 07:38 Last Admin: 02/20/25 07:46 Dose: Not Given Documented By: JASON Non-Admin Reason: No Dose Required Hydralazine HCl (Hydralazine Hcl 20 Mg/Ml Vial) 10 mg IV PUSH ONCE ONE Stop: 02/20/25 08:07 Last Admin: 02/20/25 08:13 Dose: 10 mg Documented By: JASON Losartan Potassium (Losartan Potassium 50 Mg Tablet) 50 mg PO ONCE STA Stop: 02/20/25 08:07 Last Admin: 02/20/25 08:12 Dose: 50 mg Documented By: JASON Notes 02/20/25 16:15 Nurse Note by Meche Lazaro This patient, Mago Knowles, was admitted to [facility] IMU[facility]. Patient/family oriented to hospital policies and general routines including ID bracelet, bed and alarms, visiting hours, pain management, procedures, bathroom and other care routines, personal items, smoking policy, room service/diet, and visiting hours. Information on how to activate the Rapid Response Team has been discussed. Patient/Family are encouraged to report perceived risks to care and to ask questions if they do not understand what they are told or what they should do. Initialized on 02/20/25 16:15 - END OF NOTE 02/20/25 15:15 Nurse Note by Lynne Ceron Report given to Maru LOBO all questions answered Initialized on 02/20/25 15:15 - END OF NOTE 02/20/25 09:34 (created 02/20/25 09:36) Nurse Note by Lynne Ceron Pt co L leg pain, EDP aware Initialized on 02/20/25 09:36 - END OF NOTE Interventions/Assessments Cardiac Monitoring Start: 02/20/25 07:46 Freq: Status: Active Protocol: Document 02/20/25 07:46 KED (Rec: 02/20/25 07:47 KED [id number]) Plane Captain Assessment Plane Captain Yes Applied Pulse Rate (60-100) 89 EKG Rythm Sinus Rhythm IV / Saline Lock, Insert Start: 02/20/25 07:37 Freq: STAT Status: Active Protocol: Document 02/20/25 07:48 KED (Rec: 02/20/25 07:48 KED [id number]) IV Assessment Peripheral Access Left Hand IV Catheter Access Initiated IV Insertion Date 02/20/25 IV Insertion Time 07:48 Catheter Gauge 20 IV Insertion 1 Attempts Ultrasound Used for No Placement IV Site Assessment WNL IV Care and WNL Maintenance PA: Cardiovascular Assessment Start: 02/20/25 07:46 Freq: Status: Active Protocol: Document 02/20/25 07:46 KED (Rec: 02/20/25 07:47 KED [id number]) Cardiovascular Assessment Cardiovascular Palpitations Symptoms Additional intermittent palpitation Cardiovascular Assessment Comments PA: Respiratory Assessment Start: 02/20/25 07:46 Freq: Status: Active Protocol: Document 02/20/25 07:46 JASON (Rec: 02/20/25 07:47 JASON [id number]) Respiratory Assessment Symptoms None Effort Normal Pattern Regular Depth Normal Chest Expansion Symmetrical Adult Capillary Normal/Less than 2 Seconds Refill Oxygen Delivery Oxygen Delivery Room Air Pulse Oximetry (90- 100 100) Last Vital Signs Temperature 98.2 F 02/20/25 13:57 Pulse Rate 97 02/20/25 22:52 Respiratory Rate 20 02/20/25 22:52 Pulse Oximetry 99 02/20/25 22:52 Blood Pressure 146/86 H 02/20/25 22:52 Blood Pressure Mean 106 02/20/25 22:52 Oxygen Delivery Room Air 02/20/25 07:46 Weight 104.5 kg 02/20/25 16:07 Last Result - Abnormals Only Hgb 15.1 g/dL (12.0-15.0) H 02/20/25 07:47 MCV 100.2 fl (80-100) H 02/20/25 07:47 Lymph # (Auto) 3.36 K/mm3 (0.9-3.2) H 02/20/25 07:47 Abs Immat Gran (auto) 0.04 K/mm3 (0.00-0.031) H 02/20/25 07:47 Chloride 111 mmol/L (98-107) H 02/20/25 08:06 Glucose 137 mg/dL (65-110) H 02/20/25 08:06 POC Capillary Glucose 131 mg/dl (65-105) H 02/20/25 11:21 Troponin I 0.046 ng/mL (0.000-0.034) H* 02/20/25 14:11 Total Protein 8.4 g/dL (6.3-8.2) H 02/20/25 08:06 Most Recent Suicide Severity Rating Suicide Severity Rating NO RISK INDICATED 02/20/25 16:07
--- NOTE | 2025-02-20 23:32 | PC.NURSE ---
transferred to room 203 with belongings.
[2025-02-21] VITALS (10 sets, daily range): BP systolic 131–150; BP diastolic 68–76; PULSE 78–96; RESP 16–20; TEMP 36.8–37.1; O2SAT 98–100
--- NOTE | 2025-02-21 | ECHO_ITS ---
Patient Info Name: Mago Knowles Age: 84 years : 1940 Gender: Female Ht: 63 in Wt: 235 lbs BSA: 2.23 m2 HR: 78 bpm BP: 141 / 68 mmHg Technical Quality: Fair Exam Date: 02/21/2025 11:02 AM Patient Status: I Admit Date: 02/20/2025 Exam Type: CA echo dop color flow w con Complete two-dimensional, color flow and Doppler transthoracic echocardiogram is performed with contrast to opacify the left ventricle and to improve the deliniation of the left ventricle endocardial borders. Staff Referring Physician: Tomy Campoverde Billiard Table Mechanic: Rhiannon Amaya Attending Provider: Devin Jennings Contrast/Agitated Saline Contrast/Ag. Saline: Definity Amount: 2.00 ml Existing IV Access: Yes IV Access Condition: patent with no signs of infiltration Summary 1. Left ventricular systolic function is normal, estimated at 65-70. 2. There is mildly increased left ventricular wall thickness. 3. The left ventricular diastolic function is abnormal. 4. There is mild tricuspid valve regurgitation. 5. Moderate pulmonary hypertension, estimated pulmonary arterial systolic pressure is 48 mmHg. Left Ventricle Left ventricular chamber dimension is normal. Left ventricular systolic function is normal, estimated at 65-70. There is mildly increased left ventricular wall thickness. Left ventricular septal wall motion is normal. The left ventricular diastolic function is abnormal. Right Ventricle Right ventricular chamber dimension is normal. Right ventricular systolic function is normal. Left Atria Left atrial chamber dimension is normal. Right Atria Right atrial chamber dimension is normal. Aortic Valve The aortic valve is trileaflet. There is no aortic valve sclerosis. There is no aortic valve stenosis. There is no aortic valve regurgitation. There is mild aortic valve calcification. Pulmonic Valve The pulmonic valve is normal. There is no pulmonic valve stenosis. There is no pulmonic regurgitation. Mitral Valve The mitral valve has normal leaflets. There is no mitral valve stenosis. There is no mitral valve regurgitation. There is mild mitral valve calcification. Tricuspid Valve The tricuspid valve leaflets are normal. There is no significant tricuspid valve stenosis. There is mild tricuspid valve regurgitation. Moderate pulmonary hypertension, estimated pulmonary arterial systolic pressure is 48 mmHg. Pericardium/Pleural The pericardium appears normal. There is no pericardial effusion. Inferior Vena Cava Normal inferior vena cava with >50% collapse upon inspiration consistent with normal right atrial pressure, 5 mmHg. Aorta The aortic root size at the sinus of Valsalva is normal. The prox ascending aorta size is normal. Left Ventricular Outflow Tract Name Value Normal LVOT 2D LVOT Diameter 2.0 cm LVOT Doppler LVOT Peak Velocity 96 cm/s LVOT Peak Gradient 4 mmHg LVOT Mean Gradient 2 mmHg LVOT VTI 22 cm LVOT VTI/AV VTI Ratio 0.9 LVOT Stroke Volume 70 ml LVOT CO 5.5 l/min LVOT CI 2.5 l/min/m2 Pulmonic Valve Name Value Normal RVOT Doppler RVOT Peak Velocity 66 cm/s RVOT Peak Gradient 2 mmHg PV Doppler PV Peak Velocity 81 cm/s PV Peak Gradient 3 mmHg Mitral Valve Name Value Normal MV Diastolic Function MV E Peak Velocity 101 cm/s MV A Peak Velocity 63 cm/s MV E/A 1.6 MV Decel Time (PW) 161 ms Tricuspid Valve Name Value Normal TV Regurgitation Doppler TR Peak Velocity 328 cm/s TR Peak Gradient 43 mmHg Estimated PAP/RSVP RA Pressure 5 mmHg <=5 PA Systolic Pressure 48 mmHg <36 RV Systolic Pressure 48 mmHg <36 TV Annular TDI TV Lateral Meagan s' Velocity 11.4 cm/s >=9.5 Aorta Name Value Normal Ascending Aorta Ao Root Diameter (MM) 3.4 cm Ao Root Diam Index (MM) 1.5 cm/m2 Aortic Valve Name Value Normal AV Doppler AV Peak Velocity 129 cm/s AV Peak Gradient 7 mmHg AV Mean Gradient 4 mmHg AV VTI 25 cm AV Area (Cont Eq VTI) 2.8 cm2 >=3.0 AV Area (Cont Eq Armin) 2.4 cm2 AV DI (Armin) 0.75 AV Regurgitation 2D LVOT Area 3.2 cm2 Ventricles Name Value Normal LV Dimensions 2D/MM IVS Diastolic Thickness (2D) 0.8 cm 0.6-1.0 IVS Diastole Thickness (MM) 1.1 cm 0.6-0.9 LVID Diastole (2D) 4.6 cm 3.8-5.2 LVID Diastole (MM) 4.7 cm 3.8-5.2 LVIW Diastolic Thickness (2D) 1.0 cm 0.6-0.9 LVIW Diastolic Thickness (MM) 1.3 cm 0.6-0.9 LVID Systole (2D) 2.6 cm 2.2-3.5 LVID Systole (MM) 2.5 cm 2.2-3.5 LVOT Diameter 2.0 cm LV Mass (2D Cubed) 135.96 g 67.00-162.00 LV Mass Index (2D Cubed) 61 g/m2 43-95 Relative Wall Thickness (2D) 0.43 <=0.42 LV Mass (MM Cubed) 207.55 g 67.00-162.00 LV Mass Index (MM Cubed) 93 g/m2 43-95 Relative Wall Thickness (MM) 0.57 LV Fractional Shortening/Ejection Fraction 2D/MM LV Fractional Shortening (2D) 42 % 27-45 LV Fractional Shortening (MM) 45 % 27-45 LV EF (MM Teichholz) 77 % LV EF (2D Teichholz) 73 % LV Diastolic Volume (4C MOD) 100 ml LV EF (4C MOD) 62 % LV Diastolic Volume (2C MOD) 137 ml LV EF (2C MOD) 67 % LV Diastolic Volume (BP MOD) 117 ml 46-106 LV Diastolic Volume Index (BP MOD) 53 ml/m2 29-61 LV Systolic Volume (BP MOD) 42 ml 14-42 LV Systolic Volume Index (BP MOD) 19 ml/m2 8-24 LV EF (BP MOD) 64 % 54-74 LV Diastolic Length (4C) 8.6 cm LV Systolic Length (4C) 7.2 cm LV Stroke Volume (4C MOD) 62 ml Atria Name Value Normal LA Dimensions LA Dimension (MM) 4.3 cm 2.7-3.8 LA Volume (4C A-L) 44 ml LA Volume (BP A-L) 50 ml RA Dimensions RA Systolic Major [place] Length (4C) 5.6 cm 2.2-2.8 RA Area (4C) 14.8 cm2 <=18.0 Report Signatures
[2025-02-21] MEDS: LACTATED RINGERS 1,000 ML 100 ML IV CONT (00:45)
[2025-02-21 07:19] LABS: Hematocrit 41.2 % (37.0-47.0); Hemoglobin 13.2 g/dL (12.0-15.0); Immature Granulocyte Percent A 0.1 % (0-0.5); Lymphocytes Absolute Auto 2.79 K/mm3 (0.9-3.2); Mean Corpuscular HGB Conc 32.0 g/dl (32-36); Mean Corpuscular Hemoglobin 32.3 pg (26-34); Mean Corpuscular Volume 100.7 fl (80-100); Nucleated Red Blood Cells Absolute Auto 0.000 K/mm3 (0.0-0.012); Nucleated Red Blood Cells Perc 0.0 % (0.0-0.2); Platelet Count Result 181 k/mm3 (150-375); Red Blood Count 4.09 M/mm3 (4.2-5.4); White Blood Count 8.2 K/mm3 (4.5-10.0)
--- NOTE | 2025-02-21 07:38 | PM.CNCAR ---
Assessment and Plan Assessment and plan (1) Heart palpitations: Code(s): R00.2 - Palpitations Status: Acute (2) Essential hypertension: Code(s): I10 - Essential (primary) hypertension Status: Acute (3) Troponin level elevated: Code(s): R79.89 - Other specified abnormal findings of blood chemistry Status: Acute Plan -palpitations -troponin elevation -hypertension urgency -diabetes -in regards to hypertension urgency, present to the hospital elevated blood pressure due to noncompliance. Blood pressure much better restarting the losartan.. -in regards to palpitations overnight she did have 1 episode of nonsustained ventricular tachycardia episode of narrow complex tachycardia that could be supraventricular tachycardia. She will benefit from outpatient monitor. In the meanwhile start metoprolol 25 mg b.i.d.. Avoid excessive caffeine. TSH was normal .obtain echo. If echo looks okay patient can be discharged and will arrange the outpatient monitor -in regards to troponin elevation minimally elevated but flat.. Denies chest pain. No ischemic changes in ekg. Most likely demand ischemia from severe hypertension History of Present Illness History of Present Illness Consult date/time: Date of service 02/21/25 07:38 Requesting physician: Tomy Campoverde MD Consult reason: Other (Hypertension emergency) Reason For Visit: hypertensive emergency,elevated troponin,medicatia Narrative: This is a 84-year-old female with past history of diabetes, hypertension, diabetes who presents here to the hospital with intermittent palpitations. She states she goes to [facility] and then middle night wakes up with palpitations. She sits up and typically the palpitations resolve. However sometimes the last longer. Has not been compliant with taking her blood pressure medications. Blood pressure on arrival was 194/101. Denies chest pain, lower extremity edema dizziness, syncope, nausea vomiting. Patient was restarted on her home blood pressure medicine losartan 50 mg daily and her blood pressure now is controlled. Overnight on telemetry there is one 5 beat nonsustained ventricular tachycardia one narrow complex tachycardia could be supraventricular tachycardia. Slightly irregular though. She drinks cup of coffee every day. No smoking or alcohol Creatinine 0.84 TSH is normal, troponin 0.043, 0.046, chest x-ray reviewed and was worsened shows streak left heel wound lobe atelectasis, EKG reviewed on as myself shows sinus rhythm, left axis deviation. Review of Systems Constitutional: Constitutional: Denies chills, Denies fever(s) and Denies poor appetite Eyes: Eyes: Denies eye discharge, Denies loss of vision and Denies eye pain ENT: Denies dizziness, Denies epistaxis, Denies nasal congestion and Denies sore throat Cardiovascular: Cardiovascular: Denies chest pain, Denies syncope, Denies pedal edema, Denies leg edema, Reports palpitations, Denies dyspnea, Denies dyspnea on exertion and Denies orthopnea Respiratory: Respiratory: Denies cough, Denies dyspnea, Denies dyspnea on exertion and Denies wheezing Gastrointestinal: Gastrointestinal: Denies abdominal pain, Denies diarrhea, Denies nausea and Denies vomiting Genitourinary: Genitourinary: Denies hematuria, Denies genital lesions and Denies dysuria Musculoskeletal: Musculoskeletal: Denies arthralgias, Denies joint swelling and Denies numbness Integumentary/Breasts: Skin/Breast: Denies pruritus and Denies rash Neurologic: Denies dizziness, Denies syncope, Denies loss of vision and Denies numbness Psychiatric: Psychiatric: Denies anxiety and Denies depression Endocrine: Endocrine: Denies cold intolerance, Denies heat intolerance and Denies palpitations Hematologic/Lymphatic: Hematologic/Lymphatic: Denies easy bleeding and Denies easy bruising Allergic/Immunologic: Allergic/Immunologic: Denies urticaria and Denies wheezing PMFSH Past Medical History Medical History Essential hypertension Obesity Hyperlipidemia Vitamin D deficiency Diabetes mellitus Surgical History Surgical History H/O tubal ligation Hx of eye surgery History of removal of cyst Family History Family History Father Diabetes mellitus Other Diabetes mellitus Social History Social History Smoking status: Never smoker Second hand tobacco smoke exposure: No Alcohol intake: never Substance use: never Substance use type: does not use Lack of Transportation: No Lack of Food: Never True Current Housing: I Have Housing Concerned About Future Housing: No Difficulty Paying Gas/Electric Bills: No Difficulty Paying for Meds: No Currently Unemployed: No Education: High School Diploma/GED Difficulty w/ Childcare or Family Care: No Occupation/Education: retired Gender identity (if verbalized by the patient): Female Sexual Orientation (if Verbalized by the Patient): Straight or Heterosexual Spiritual care concerns: No Agree to blood products: Yes Meds Home Medications and Allergies Home Medications ?Medication ?Instructions ?Recorded ?Confirmed ?Type losartan 50 mg tablet 50 mg PO DAILY 08/04/24 02/20/25 History meloxicam 15 mg tablet 15 mg PO DAILY 08/04/24 02/20/25 History rosuvastatin 40 mg tablet 40 mg PO DAILY 08/04/24 02/20/25 History dapagliflozin propanediol 5 mg 5 mg PO DAILY #90 tabs 08/05/24 02/20/25 Rx tablet (Farxiga) Held on 02/20/25. Instructions: Patient no longer taking metformin 500 mg tablet,extended 500 mg PO BID #360 tabs 08/05/24 02/20/25 Rx release 24 hr (Glucophage XR) blood sugar diagnostic (OneTouch #300 ea 11/15/24 02/20/25 Rx Verio test strips) blood-glucose meter (OneTouch #1 ea 11/15/24 02/20/25 Rx Verio Flex Meter) lancets 32 gauge (Easy Touch #300 ea 11/15/24 02/20/25 Rx Lancets) Allergies Allergy/AdvReac Type Severity Reaction Status Date / Time blue dye Allergy Mild other Verified 02/20/25 16:23 Corticosteroids Allergy Mild angioedema Verified 02/20/25 16:23 (Glucocorticoids) enalapril Allergy Mild Cough Verified 02/20/25 16:23 semaglutide (From Ozempic) AdvReac Mild Nausea Verified 02/20/25 16:23 Vital Signs Vital Signs - 24 hr 02/20/25 07:46 02/20/25 07:46 02/20/25 09:27 Temperature Pulse Rate 89 94 Respiratory Rate 19 Blood Pressure 154/89 H Pulse Oximetry 100 100 Oxygen Delivery Room Air 02/20/25 10:14 02/20/25 10:58 02/20/25 12:19 Temperature Pulse Rate 88 87 87 Respiratory Rate 16 16 18 Blood Pressure 152/90 H 160/88 H 138/86 Pulse Oximetry 99 100 100 Oxygen Delivery 02/20/25 13:57 02/20/25 22:39 02/20/25 22:52 Temperature 36.8 C Pulse Rate 87 97 Respiratory Rate 20 20 Blood Pressure 132/76 146/86 H Pulse Oximetry 99 99 99 Oxygen Delivery 02/20/25 23:30 02/21/25 00:00 02/21/25 00:25 Temperature 36.8 C Pulse Rate 92 96 90 Respiratory Rate 16 Blood Pressure 138/72 Pulse Oximetry 98 Oxygen Delivery 02/21/25 02:35 02/21/25 04:00 02/21/25 04:00 Temperature 36.8 C Pulse Rate 86 85 83 Respiratory Rate 16 Blood Pressure 131/68 Pulse Oximetry 98 Oxygen Delivery 02/21/25 06:00 Temperature Pulse Rate 78 Respiratory Rate Blood Pressure Pulse Oximetry Oxygen Delivery Exam Const: General: cooperative, comfortable, no acute distress, alert, awake and well nourished Nutritional Appearance: well nourished Orientation/consciousness: patient oriented x3 HENMT: Head: normal to inspection, normocephalic and atraumatic Ears: hearing grossly normal bilaterally Face/Nose/Sinus: Normal external nose present, Normal nares present, no nasal discharge noted, normal facial exam and No erythema Face and sinus: normal facial exam and no erythema Mouth: No drooling and No restricted motion Throat: uvula midline Eyes: General: appearance normal, both eyes and all related structures Alignment and Position: position normal Conjunctivae: conjunctivae normal Sclera: sclerae normal Direct Ophthalmoscopy: No photophobia Neck: Neck: normal visual inspection and no JVD Thyroid: thyroid normal Carotids: no bruits Lymphatic: lymphedema not noted Chest: Chest palpation & inspection: normal inspection of the chest and no tenderness Resp: Effort & Inspection: normal respiratory effort and no nasal flaring Auscultation: clear to auscultation bilaterally, no crackles, no rales and no wheezes Cardio: Jugular venous distension: no JVD Rate: regular rate Rhythm: regular rhythm Heart sounds: S1 normal heart sound present, S2 normal heart sound present, no gallops, no murmurs and no rubs GI: Inspection: non-distended GI Palp: No abdominal tenderness and No Soft to palpation Auscultation: normal bowel sounds Rectal Exam: deferred : General: No no CVA tenderness Back/Spine/Pelvis: Back: No no CVA tenderness Cervical Spine: cervical ROM normal Skin: General skin exam: normal color and rashes and/or lesions noted Neuro: General: patient oriented x3 Cranial nerves: No CN's II-XII intact bilaterally Speech: normal speech Motor exam (neuro): no tremors Extrem: General: normal to inspection and pedal edema present Psych: Appearance: grossly normal and well kempt Speech and movement: Normal speech and movement present Affect: normal affect Results Labs and Meds 02/20/25 07:47 02/20/25 08:06 Lab results: Cardiac Enzymes 02/20/25 02/20/25 02/20/25 Range/Units 08:06 11:06 14:11 AST 35 (14-36) U/L Troponin I 0.037 H* 0.043 H* 0.046 H* (0.000-0.034) ng/mL Coagulation 02/20/25 Range/Units 08:06 PT 14.1 (11.1-14.7) Seconds APTT 28.3 (22.3-36.8) Seconds CBC 02/20/25 Range/Units 07:47 WBC 9.1 (4.5-10.0) K/mm3 RBC 4.63 (4.2-5.4) M/mm3 Hgb 15.1 H (12.0-15.0) g/dL Hct 46.4 (37.0-47.0) % Plt Count 195 (150-375) k/mm3 Lymph # (Auto) 3.36 H (0.9-3.2) K/mm3 Saunders # (Auto) 0.6 (0.1-0.6) K/mm3 Eos # (Auto) 0.1 (0-0.3) K/mm3 Baso # (Auto) 0.1 (0.0-0.1) K/mm3 Comprehensive Metabolic Panel 02/20/25 Range/Units 08:06 Sodium 143 (137-145) mmol/L Potassium 3.9 (3.4-5.0) mmol/L Chloride 111 H (98-107) mmol/L Carbon Dioxide 24 (22-30) mmol/L BUN 14 (7-17) mg/dL Creatinine 0.84 (0.7-1.0) mg/dL Glucose 137 H (65-110) mg/dL Calcium 9.1 (8.4-10.2) mg/dL AST 35 (14-36) U/L ALT 18 (6-35) U/L Alkaline Phosphatase 118 (38-126) U/L Total Protein 8.4 H (6.3-8.2) g/dL Albumin 4.1 (3.5-5.1) g/dL Intake and Output 02/20/25 02/20/25 02/21/25 15:59 23:59 07:59 Intake Total 200 Output Total 300 Balance -100 Intake: Oral 200 Output: Urine 300 Patient Weight 02/21/25 23:59 Weight 107 kg
--- NOTE | 2025-02-21 08:19 | P.PNIM_ITS ---
Assessment and Plan Assessment and Plan (1) Heart palpitations: Code(s): R00.2 - Palpitations Status: Acute Assessment and Plan: * Intermittent palpitations mainly occurring at night, did have 1 episode of palpitations during the day. No associated shortness of breath or chest pain. * Initial EKG: sinus rhythm, left axis deviation, incomplete RBBB, possible anterior MN * Palpitations could be related to undiagnosed sleep apnea, has never undergone a sleep study prior, dysrhythmia, heart failure, or thyroid disorder. P * No dysrhythmias thus far noted on telemetry. * TSH 3.320 * IV fluids: LR 100 mL/hour x1 L * telemetry monitoring to assess for dysrhythmia * ApneaLink * troponin elevated, however this is suspected to be secondary to her elevated blood pressure. Thus far flat. No active chest pain, low suspicion for ACS. (2) Non-ST elevation MN (NSTEMI): Code(s): I21.4 - Non-ST elevation (NSTEMI) myocardial infarction Status: Acute Assessment and Plan: * Patient's initial troponin mildly elevated. Trend thus far 0.037 -> 0.043 -> 0.046. * No active chest pain, shortness a breath, indigestion, fatigue, or weakness suggestive of ACS. * EKG: sinus rhythm, left axis deviation, incomplete RBBB, possible anterior MN * Repeat EKGs completed x2, unchanged compared to initial. * Suspect elevation in troponin secondary to hypertensive urgency. * SL nitro p.r.n. * ASA 324 -> 81 daily * cardiology consulted * telemetry monitoring (3) Essential hypertension: Code(s): I10 - Essential (primary) hypertension Status: Acute Assessment and Plan: chronic. Significantly elevated on arrival. Suspected hypertensive urgency related to medication noncompliance. Has not taken her antihypertensive since Thursday (02/18). She reports she is typically not very compliant with her antihypertensives. Daughter reports she is nervous about taking the blood pressure medications, however after today she states she will be taking them regularly. Given losartan p.o. and hydralazine IV in the ED and BP significantly improved, most recently 132/76. * continue home medications: Losartan 50 mg daily * monitor (4) Diabetes mellitus: Qualifiers: Diabetes mellitus type: type 2 Diabetes mellitus superintendent terminal insulin use: without senior living use Diabetes mellitus complication status: without complication Qualified Code(s): E11.9 - Type 2 diabetes mellitus without complications Code(s): E11.9 - Type 2 diabetes mellitus without complications Status: Acute Assessment and Plan: * hypoglycemia protocol * POC blood glucose ACHS * home medication: Hold metformin * correct regimen ordered - low dose TIDWM * A1C 7.2% on 11/15/2024 (5) Hyperlipidemia: Qualifiers: Hyperlipidemia type: unspecified Qualified Code(s): E78.5 - Hyperlipidemia, unspecified Code(s): E78.5 - Hyperlipidemia, unspecified Status: Chronic Assessment and Plan: * update lipid panel * continue home medication: Rosuvastatin 40 mg daily Plan Diet: Diabetic GI Prophylaxis: n/a DVT Prophylaxis: SCDs IV fluids: LR 100 mL/hour x1 L Lines/Tubes: pIV Code Status: Full code Subjective Date/time seen: 02/21/25 08:19 Interval history: 84 y/o F with PMH of hypertension, hyperlipidemia, and diabetes presents here with palpitations. 02/21/2025 Review of Systems Review of Systems: All systems reviewed & are unremarkable except as noted in HPI and below Exam Const: General: comfortable and no acute distress Other: -[place], female, elderly, nontoxic shani earance HENMT: Face/Nose/Sinus: Normal nares present Mouth: Yes moist mucous membranes Eyes: General: appearance normal, both eyes and all related structures Sclera: sclerae normal Pupils: Equal, round and reactive pupils present EOM: EOMs intact bilaterally Resp: Effort & Inspection: normal respiratory effort Auscultation: clear to auscultation bilaterally Cardio: Rate: regular rate Rhythm: regular rhythm Other: S1-S2 present without murmur, rub, ectopy GI: Other: Abdomen soft, nondistended, nontender. Normoactive bowel sounds in all quadrants. Skin: General skin exam: normal color and no rashes or lesions noted Wounds: no wounds Neuro: Cranial nerves: Yes Equal, round and reactive pupils present Speech: normal speech Motor exam (neuro): 5/5 motor strength present throughout Sensory Exam: normal sensation Other: A&O x4 Extrem: Other: Trace nonpitting edema to the bilateral ankles, symmetric Psych: Mental Status: mental status grossly normal Affect: normal affect Other: Good insight and judgment, very pleasant Objective Data Vital Signs Vital Signs: Vital Signs - 24 hr 02/20/25 09:27 02/20/25 10:14 02/20/25 10:58 Temperature Pulse Rate 94 88 87 Respiratory Rate 19 16 16 Blood Pressure 154/89 H 152/90 H 160/88 H Pulse Oximetry 100 99 100 02/20/25 12:19 02/20/25 13:57 02/20/25 22:39 Temperature 98.2 F Pulse Rate 87 87 Respiratory Rate 18 20 Blood Pressure 138/86 132/76 Pulse Oximetry 100 99 99 02/20/25 22:52 02/20/25 23:30 02/21/25 00:00 Temperature 98.3 F Pulse Rate 97 92 96 Respiratory Rate 20 16 Blood Pressure 146/86 H 138/72 Pulse Oximetry 99 98 02/21/25 00:25 02/21/25 02:35 02/21/25 04:00 Temperature 98.2 F Pulse Rate 90 86 85 Respiratory Rate 16 Blood Pressure 131/68 Pulse Oximetry 98 02/21/25 04:00 02/21/25 06:00 Temperature Pulse Rate 83 78 Respiratory Rate Blood Pressure Pulse Oximetry Intake/Output Intake/Output: Intake & Output 02/18/25 02/19/25 02/20/25 02/21/25 23:59 23:59 23:59 23:59 Intake Total 440 Output Total 700 Balance -260 Meds/Results Medications: Active Medications Generic Name Dose Route Start Last Admin Trade Name Freq PRN Reason Stop Dose Admin Acetaminophen 650 mg 02/20/25 17:19 Acetaminophen 325 Mg Tablet PO Q6H PRN Mild Pain (1-3) or Fever Aspirin 81 mg 02/21/25 08:00 Aspirin 81 Mg Chewable Tablet PO DAILY@0800 SHAHNAZ Benzonatate 100 mg 02/20/25 17:19 Benzonatate 100 Mg Capsule PO Q8H PRN Cough Calcium Carbonate 200 mg 02/20/25 17:19 Calcium Carbonate (Tums) 500 Mg (200 Mg Elemental) PO Q6H PRN Indigestion Dextrose 12.5 gm 02/20/25 17:16 Dextrose 50% 25 Gm/50 Ml Syringe IV PUSH PRN PRN Hypoglycemia Protocol Glucagon 1 mg 02/20/25 17:16 Glucagon For Inj 1 Mg Vial IM PRN PRN Hypoglycemia Protocol Glucose 15 gm 02/20/25 17:16 Glucose Oral Gel 15 Gm Of Glucse In 37.5 Gm Tube PO PRN PRN Hypoglycemia Protocol Guaifenesin 600 mg 02/20/25 17:19 Guaifenesin 12 Hr 600 Mg Tabcr PO On Hold: 02/20/25 18:13 Q12HR PRN Comment: Please verify Congestion reaction to blue dye prior to Guaifenesin administration - tablet contains blue dye Dextrose 1,000 mls @ 100 mls/hr 02/20/25 17:16 Dextrose 5% 1,000 Ml IVPB PRN PRN Hypoglycemia Protocol Lactated Ringer's 1,000 mls @ 100 mls/hr 02/21/25 00:45 02/21/25 00:45 Lr - Lactated Ringers Iv IV CONT 02/21/25 10:44 100 mls/hr .Q10H ONE Administration Insulin Aspart 2 - 5 units 02/21/25 08:00 Insulin Aspart (*Bkc) 100 Units/Ml SUB-Q TIDWM [facility] Protocol Losartan Potassium 50 mg 02/21/25 09:00 Losartan Potassium 50 Mg Tablet PO DAILY [facility] Meloxicam 15 mg 02/21/25 09:00 Meloxicam 7.5 Mg Tablet PO QAM [facility] Miscellaneous Information 0 each 02/20/25 00:01 Blue Dye Allergy Listed - Guaifenesin Tabs Contain Blue Dye XX 03/22/25 00:00 CLARIFY [facility] Rosuvastatin Calcium 40 mg 02/21/25 09:00 Rosuvastatin 20 Mg Tablet PO DAILY [facility] Radiology Results: ITS Impressions Chest X-Ray 02/20/25 09:12 IMPRESSION: 1. Cardiomegaly. 2. Mild streaky left basilar atelectasis. No other acute cardiopulmonary disease. Labs Labs: Laboratory Results - last 24 hr 02/20/25 02/20/25 02/20/25 08:06 11:06 11:21 WBC RBC Hgb Hct MCV MCH MCHC RDW Plt Count MPV Immature Gran % (Auto) Neut % (Auto) Lymph % (Auto) Calvert % (Auto) Eos % (Auto) Baso % (Auto) Lymph # (Auto) [place] # (Auto) Eos # (Auto) Baso # (Auto) Abs Immat Gran (auto) Absolute Neuts (auto) Absolute Nucleated RBC Nucleated RBC % PT 14.1 INR 1.1 APTT 28.3 Sodium 143 Potassium 3.9 Chloride 111 H Carbon Dioxide 24 Anion Gap 8 BUN 14 Creatinine 0.84 Estim Creat Clear Calc 48 Estimated GFR > 60 Glucose 137 H POC Capillary Glucose 131 H Calcium 9.1 Magnesium 2.0 Total Bilirubin 0.8 AST 35 ALT 18 Alkaline Phosphatase 118 Troponin I 0.037 H* 0.043 H* Total Protein 8.4 H Albumin 4.1 Lipase 73 TSH (Reflex) 3.320 02/20/25 02/21/25 02/21/25 14:11 07:08 07:40 WBC 8.2 RBC 4.09 L Hgb 13.2 Hct 41.2 MCV 100.7 H MCH 32.3 MCHC 32.0 RDW 13.2 Plt Count 181 MPV 10.6 H Immature Gran % (Auto) 0.1 Neut % (Auto) 55.7 Lymph % (Auto) 34.1 Calvert % (Auto) 8.2 Eos % (Auto) 1.2 Baso % (Auto) 0.7 Lymph # (Auto) 2.79 Calvert # (Auto) 0.7 H Eos # (Auto) 0.1 Baso # (Auto) 0.1 Abs Immat Gran (auto) 0.01 Absolute Neuts (auto) 4.5 Absolute Nucleated RBC 0.000 Nucleated RBC % 0.0 PT INR APTT Sodium Potassium Chloride Carbon Dioxide Anion Gap BUN Creatinine Estim Creat Clear Calc Estimated GFR Glucose POC Capillary Glucose 122 H Calcium Magnesium Total Bilirubin AST ALT Alkaline Phosphatase Troponin I 0.046 H* Total Protein Albumin Lipase TSH (Reflex) Quality VTE Prophylaxis VTE prophylaxis: mechanical ordered
[2025-02-21] MEDS: ASPIRIN 81 MG CHEWABLE TABLET PO (08:59)
[2025-02-21] MEDS: ROSUVASTATIN 20 MG TABLET 40 MG PO (09:00)
[2025-02-21] MEDS: LOSARTAN POTASSIUM 50 MG TABLET PO (09:00)
[2025-02-21] MEDS: MELOXICAM 7.5 MG TABLET 15 MG PO (09:00)
[2025-02-21 09:02] LABS: Anion Gap 6 mmol/L (4-12); Blood Urea Nitrogen 17 mg/dL (7-17); Calcium 8.6 mg/dL (8.4-10.2); Carbon Dioxide 25 mmol/L (22-30); Chloride 110 mmol/L (98-107); Estimated CRCL calculation 53 ml/min; Estimated Glomerular Filt Rate > 60; Glucose 129 mg/dL (65-110); Potassium 4.0 mmol/L (3.4-5.0); Sodium 141 mmol/L (137-145)
[2025-02-21 09:27] LABS: NT Pro B Type Natriuretic Pept 453 pg/mL (19.9-100)
[2025-02-21] MEDS: METOPROLOL TARTRATE 25 MG TABLET PO (09:58)
[2025-02-21] MEDS: PERFLUTREN LIPID MICROSPHERES 1.5 ML VIAL DILUTED TO 10 ML TOTAL VOLUME IV PUSH (11:25)
--- NOTE | 2025-02-21 12:26 | IVDEFINITY ---
Prior to administration of IV Definity the patient was educated on the risks and benefits of the imaging enhancing agent including potential adverse side effects. The patient verbalized understanding. Allergies were verified. No exclusion criteria were identified and at least one of the following inclusion criteria were met: 1) physician request, 2) patient technically difficult to image (per the [place] [employer] guidelines of two or more segments not discernable within the apical view), or 3) questionable left ventricular function. ?
--- NOTE | 2025-02-21 13:23 | P.DS_ITS ---
DS: Admitting Diagnosis Discharge Date 02/21/2025 Admitting Diagnosis Heart palpitations DS: Discharge Diagnosis Discharge Diagnosis (1) Heart palpitations: Code(s): R00.2 - Palpitations Status: Acute (2) Non-ST elevation SD (NSTEMI): Code(s): I21.4 - Non-ST elevation (NSTEMI) myocardial infarction Status: Acute (3) Essential hypertension: Code(s): I10 - Essential (primary) hypertension Status: Acute (4) Diabetes mellitus: Qualifiers: Diabetes mellitus type: type 2 Diabetes mellitus residential insulin use: without terminal clerk use Diabetes mellitus complication status: without complication Qualified Code(s): E11.9 - Type 2 diabetes mellitus without complications Code(s): E11.9 - Type 2 diabetes mellitus without complications Status: Acute (5) Hyperlipidemia: Qualifiers: Hyperlipidemia type: unspecified Qualified Code(s): E78.5 - Hyperlipidemia, unspecified Code(s): E78.5 - Hyperlipidemia, unspecified Status: Chronic DS: Summary Hospital Course Reason for hospitalization: Palpitations Hospital Course: The patient is an 84-year-old female with a history of hypertension, type 2 diabetes mellitus, and hyperlipidemia who presented on 02/20/25 with several weeks of intermittent palpitations, predominantly nocturnal, and was found to have severe hypertension on arrival (194/101) in the setting of medication noncompliance. Initial evaluation demonstrated sinus rhythm on EKG with left axis deviation and incomplete RBBB, without dynamic ischemic changes. Laboratory workup showed mildly elevated but flat troponins (0.037 -> 0.043 -> 0.046) with otherwise unremarkable CBC, BMP, and normal renal function. Chest X-ray revealed cardiomegaly and mild left basilar atelectasis. Blood pressure improved significantly after resumption of home losartan and IV antihypertensive therapy. She was monitored on telemetry, which revealed one brief 5-beat run of nonsustained ventricular tachycardia and one episode of narrow complex tachycardia suspicious for SVT, without sustained arrhythmia or associated symptoms. Cardiology was consulted and felt the troponin elevation was most consistent with demand ischemia related to hypertensive urgency rather than acute coronary syndrome. Transthoracic echocardiogram demonstrated preserved left ventricular systolic function (EF 65?70%), mild concentric left ventricular hypertrophy, abnormal diastolic function, mild tricuspid regurgitation, and moderate pulmonary hypertension (estimated PASP 48 mmHg), without significant valvular disease. TSH was normal. The patient was started on metoprolol 25 mg twice daily for rate control and palpitations, counseled on medication adherence and caffeine avoidance, and remained hemodynamically stable without recurrent symptomatic palpitations. Given clinical stability, controlled blood pressure, and reassuring cardiac evaluation, she was deemed appropriate for discharge with plans for outpatient cardiac monitoring and follow-up. Plan to discharge on metoprolol 25 mg b.i.d. and will have her follow-up with Cardiology in the outpatient setting. Status at Discharge Functional status at discharge: independent ambulation Overall status at discharge: patient is back to baseline Time Spent with Patient Time attestation: Total time spent providing and/or coordinating discharge services: 29 Exam Const: Other: -[place], female, elderly, nontoxic shani earance Resp: Effort & Inspection: normal respiratory effort Auscultation: clear to auscultation bilaterally Cardio: Other: S1-S2 present without murmur, rub, ectopy GI: Other: Abdomen soft, nondistended, nontender. Normoactive bowel sounds in all quadrants. Neuro: Other: A&O x4 Extrem: Other: Trace nonpitting edema to the bilateral ankles, symmetric Psych: Other: Good insight and judgment, very pleasant DS: Data Data Completed and Pending Labs on day of discharge: Labs from last 24 hours 02/21/25 02/21/25 02/21/25 11:36 07:40 07:08 WBC 8.2 RBC 4.09 L Hgb 13.2 Hct 41.2 MCV 100.7 H MCH 32.3 MCHC 32.0 RDW 13.2 Plt Count 181 MPV 10.6 H Immature Gran % (Auto) 0.1 Neut % (Auto) 55.7 Lymph % (Auto) 34.1 [place] % (Auto) 8.2 Eos % (Auto) 1.2 Baso % (Auto) 0.7 Lymph # (Auto) 2.79 [place] # (Auto) 0.7 H Eos # (Auto) 0.1 Baso # (Auto) 0.1 Abs Immat Gran (auto) 0.01 Absolute Neuts (auto) 4.5 Absolute Nucleated RBC 0.000 Nucleated RBC % 0.0 Sodium 141 Potassium 4.0 Chloride 110 H Carbon Dioxide 25 Anion Gap 6 BUN 17 Creatinine 0.77 Estim Creat Clear Calc 53 Estimated GFR > 60 Glucose 129 H POC Capillary Glucose 170 H 122 H Calcium 8.6 Troponin I NT-Pro-B Natriuret Pep 453 H 02/20/25 14:11 WBC RBC Hgb Hct MCV MCH MCHC RDW Plt Count MPV Immature Gran % (Auto) Neut % (Auto) Lymph % (Auto) [place] % (Auto) Eos % (Auto) Baso % (Auto) Lymph # (Auto) [place] # (Auto) Eos # (Auto) Baso # (Auto) Abs Immat Gran (auto) Absolute Neuts (auto) Absolute Nucleated RBC Nucleated RBC % Sodium Potassium Chloride Carbon Dioxide Anion Gap BUN Creatinine Estim Creat Clear Calc Estimated GFR Glucose POC Capillary Glucose Calcium Troponin I 0.046 H* NT-Pro-B Natriuret Pep Discharge Plan Discharge Attending physician on discharge: Devin Jennings Consulting providers: Marcus Holbrook; Sridhar Lara Discharging Clinician: Sridhar Lara Anticipated Discharge Date/Time: 02/21/25 13:22 Patient Disposition: Home Activity: as tolerated Diet: heart healthy Discharge Instructions: Discharge disposition: Home Take medications as prescribed Monitor blood pressures Take caution while standing, rising, or moving Change positions slowly taking a break between each position change If you standing feel dizzy sit back down and take a break Encouraged to continue with yearly vaccinations Return to the emergency department if you develop sudden shortness of breath, chest pain, nausea, vomiting, upset stomach or intractable diarrhea Return to the emergency department if you develop fever greater than 101.5 Follow-up with the primary care physician within 1-2 weeks Follow up with Cardiology in the next few weeks Thank you for [facility] for your healthcare needs Patient Instructions: Antibiotic Form Patient Language: Bulgarian Stand Alone Forms: General Discharge Information Follow-up/Referrals: Marcus Holbrook MD [Physician, Cardiology] Kailey,Trever Wu MD [Primary Care Provider, Unknown] Discharge Medications: New metoprolol tartrate 25 mg Tablet 25 mg PO Q12HR Qty: 30 0RF Continued losartan 50 mg tablet 50 mg PO DAILY meloxicam 15 mg tablet 15 mg PO DAILY rosuvastatin 40 mg tablet 40 mg PO DAILY metformin [Glucophage XR] 500 mg tablet extended release 24 hr 500 mg PO BID Qty: 360 0RF (DME) blood-glucose meter [[employer]oom[employer] Verio Flex meter] Misc See Rx Instructions .ROUTE .MEDSUPPLY Qty: 1 0RF Rx Instructions: As directed (DME) OneTouch Verio test strips Strip See Rx Instructions .ROUTE .MEDSUPPLY Qty: 300 12RF Rx Instructions: Please check 2 times daily (DME) Easy Touch Lancets 32 gauge misc See Rx Instructions .Route Qty: 300 12RF Rx Instructions: two times daily Discontinued dapagliflozin propanediol [Farxiga] 5 mg tablet 5 mg PO DAILY Qty: 90 0RF Date of admission: 02/20/25 13:28 Primary Care Provider: Kailey,Trever Wu Admitting Provider: Devin Jennings Attending physician on admission: Devin Jennings Condition: Serious Quality VTE Prophylaxis VTE prophylaxis: mechanical ordered
== END 2025-02-21 14:07 | disposition home or self-care (01) ==
LOC: ANHED 12:41 → ANHIMU 13:46
PROVIDERS: Student in an Organized Health Care Education/Training Program; Admitting Provider Internal Medicine; Emergency Provider Emergency Medicine; PCP Internal Medicine; Visit Provider Internal Medicine
DX: I21.4 Non-ST elevation (NSTEMI) myocardial infarction (principal); R00.2 Palpitations; E11.9 Type 2 diabetes mellitus without complications; R79.89 Other specified abnormal findings of blood chemistry; I11.9 Hypertensive heart disease without heart failure; I45.19 Other right bundle-branch block; E78.5 Hyperlipidemia, unspecified; E55.9 Vitamin D deficiency, unspecified; E66.9 Obesity, unspecified; Z68.41 Body mass index [BMI] 40.0-44.9, adult; Z91.148 Patient's other noncompliance with medication regimen for other reason; Z79.84 Long term (current) use of oral hypoglycemic drugs; Z79.1 Long term (current) use of non-steroidal anti-inflammatories (NSAID)
CPT/HCPCS: 36415; 71046; 80048; 80053; 82948; 83690; 83735; 83880; 84443; 84484; 85025; 85610; 85730; 93005; 94762; 96361; 96374; 96375; 99285; A9270; C8929; G0378; J0360; J7120; Q9957